=== PATIENT | female | born 1995 | race Caucasian/White ===

== ENCOUNTER 2022-11-08 13:13 | Outpatient (CLI) | payer OTHER, SELFPAY ==
--- NOTE | 2022-11-08 14:00 | CRLHL7_ITS ---
For Patients: As a result of the Century Cures Act, medical imaging exams and procedure reports are released immediately into your electronic medical record. You may view this report before your referring provider. If you have questions, please contact your health care provider. INDICATION: Pelvic and perineal pain. FINDINGS: A transabdominal and transvaginal imaging. Uterus 8 x 4 x 5 cm. Normal urinary bladder. No peritoneal mass. Uniform myometrium. Endometrial thickness is 15 mm. Somewhat ill-defined junctional zone proximally with vascularity. No mass or cyst in the endometrial cavity. Right ovary 5 x 2 x 3 cm with physiologic follicles and normal color and spectral Doppler blood flow. Left ovary 4 x 3 x 3 cm with physiologic peripheral follicles and normal color and spectral Doppler blood flow. Small hypoechoic 8 mm presumed fibroid in the proximal lower uterine segment. IMPRESSION: Somewhat ill-defined anterior junctional zone of somewhat thick endometrium. Query adenomyosis. Dictated by Nathaniel Garcia MD @ 11/08/2022 6:22:27 PM (Electronically Signed)
== END 2022-11-08 13:14 | disposition home or self-care (01) ==
LOC: US 13:13
PROVIDERS: Visit Provider Obstetrics & Gynecology
DX: R10.2 Pelvic and perineal pain (principal)
CPT/HCPCS: 76830; 76856; 93976

== ENCOUNTER 2022-11-09 10:10 | Day surgery (SDC) | payer OTHER, SELFPAY ==
[2022-11-09 10:30] VITALS: BP 131/84; PULSE 56; RESP 14; TEMP 36.8; O2SAT 96
[2022-11-09 10:58] LABS: Hemoglobin* 14.4 gm/dL (12.0-16.0)
[2022-11-09] MEDS: DOXYCYCLINE HYCLATE 200 MG in 0.9 % SODIUM CHLORIDE Mini-bag 100 ML 100 MG IVPB (11:07)
[2022-11-09 11:16] VITALS: BMI 42.4
[2022-11-09] MEDS: SCOPOLAMINE 1 MG/3 DAY PATCH 1 PATCH TRANSDERMA (12:06)
[2022-11-09] MEDS: LACTATED RINGERS 1000 ML 1,000 ML 125 ML IV (14:15)
[2022-11-09 15:00] VITALS: BP 125/80; PULSE 56; RESP 16; TEMP 36.3; O2SAT 96
[2022-11-09] MEDS: KETOROLAC 30 MG/ML inj IVP (15:00)
--- NOTE | 2022-11-09 15:00 | W.ANESCHARGE ---
Anesthesia Charges Start Date/Time Anesthesia Start Date: 11/09/22 Anesthesia Start Time: 14:06 Stop Date/Time Anesthesia Stop Date: 11/09/22 Anesthesia Stop Time: 14:56
[2022-11-09] MEDS: LACTATED RINGERS 1000 ML 1,000 ML 50 ML IV (15:04)
--- NOTE | 2022-11-09 15:04 | W.PM.GYNPROC ---
Procedure Note Time Seen by Provider: 14:00 Date of procedure: 11/09/22 Pre-op diagnosis: Abnormal uterine bleeding, suspected retained products of conception Post-op diagnosis: same Procedure: Hysteroscopy and curettage Anesthesia: MAC Complications: None Surgeon: Jeff Courtney Estimated blood loss (mL): 10 IV fluids (mL): 300 Urine Output (mL): 200 Pathology: specimen obtained, sent to pathology Condition: stable Disposition: same day Findings: Speculum exam: cervix about 1cm dilated with dark bleeding seen from os, no abnormal vaginal discharge. Uterine sound 8cm. Intrauterine cavity: thickened, hypervascular, posterior uterine wall looked like multiple polypoid lesions even like grape like lesions with calcifications, anterior uterine wall thickened with lots of irregular looking tissue, bilateral cornual openings seen. Procedure Description: Patient was taken to the OR were MAC anesthesia was administered without difficulty. She was placed in the dorsal lithotomy position with Louie type stirrups. Patient was then prepared and draped in the normal sterile fashion. A bivalved speculum was inserted in the posterior aspect of the vagina. 0.5% Marcaine was injected at 2 and 11 o'clock a total of about 5mL utilized. A single-tooth tenaculum was used to grasp the anterior lip of the cervix. The uterus was carefully sounded to 8 cm. The cervical os did not need dilation, I was able to pass freely a 6mm Hegar dilator and knew I was able to accommodate the 5 mm TrueClear hysteroscope. A 5 mm 30 degree TrueClear hysteroscope was introduced under direct visualization, and the uterus was distended with normal saline. Findings as above. Soft tissue incisor blade from TrueClear hysteroscope system was introduced under direct visualization, but because the cervix was so dilated I was unable to keep adequate distention and was notified of rapid fluid loss that was unaccounted for, I was not concerned about perforation, but concerned that because the cavity was so hypervascular there could have been quick absorption of the fluid so decided to instead proceed with sharp curetting. This was performed gently as to avoid excess scraping and avoid scarring in the future. I was then able to perform a second look hysteroscopy and the cavity looked much regular, thinner and whitish over all of the beard of the uterus. Tenaculum was removed from the cervix and good hemostasis was noted at puncture sites. Patient tolerated the procedure well. Instrument and sponge counts were correct x2. The patient was awakened from MAC anesthesia and taken to the recovery room in a stable condition. The patient will go home after recovering from anesthesia and meeting all the criteria for discharge. She was given instruction regarding follow-up visit in 2 weeks at [facility] and instructions for pain medication. After procedure ended I was told by OR staff that there were 2 chux pads beneath patient buttocks that were soaked with clear fluid, this would account for at least 500mL of fluid deficit. Fluid deficit: 1350mL
[2022-11-09] MEDS: fentaNYL 100 MCG/2 ML inj 50 MCG IVP (15:05)
[2022-11-09 15:15] VITALS: BP 128/88; PULSE 53; RESP 16; O2SAT 96
[2022-11-09 15:30] VITALS: BP 125/87; PULSE 62; RESP 16; O2SAT 97
[2022-11-09 15:45] VITALS: BP 126/84; PULSE 64; RESP 16; O2SAT 98
== END 2022-11-09 15:48 | disposition home or self-care (01) ==
PROVIDERS: Visit Provider Obstetrics & Gynecology
PROC: 0UDB8ZZ Extraction of Endometrium, Via Natural or Artificial Opening Endoscopic (ICD-10-PCS; CPT 58558; principal; 2022-11-09 11:30)
DX: N93.8 Other specified abnormal uterine and vaginal bleeding (principal); R93.89 Abnormal findings on diagnostic imaging of other specified body structures
CPT/HCPCS: 58558; 00952; 36415; 85018; 86850; 86900; 86901; 88305; A9270; J1100; J1885; J2250; J2405; J2704; J3010; J7120

== ENCOUNTER 2022-12-24 11:58 | Outpatient (CLI) | payer OTHER, SELFPAY ==
[2022-12-28 17:54] LABS: Progesterone, HPLC-MS/MS 2.95 ng/mL
== END 2022-12-24 11:59 | disposition home or self-care (01) ==
LOC: LAB 12:00
PROVIDERS: Visit Provider Obstetrics & Gynecology
DX: Z31.9 Encounter for procreative management, unspecified (principal)
CPT/HCPCS: 36415; 84144

== ENCOUNTER 2023-03-12 11:48 | Outpatient (CLI) | payer OTHER, SELFPAY | END 2023-03-12 11:49 | disposition home or self-care (01) | LOC: NFLDREF 03-16 16:02 | PROVIDERS: Visit Provider Obstetrics & Gynecology | DX: N97.0 Female infertility associated with anovulation (principal) | CPT/HCPCS: 84144; 84702 ==

== ENCOUNTER 2023-03-14 15:50 | Outpatient (CLI) | payer OTHER, SELFPAY | END 2023-03-14 15:51 | disposition home or self-care (01) | LOC: NFLDREF 03-16 20:11 | PROVIDERS: Visit Provider Obstetrics & Gynecology | DX: N97.0 Female infertility associated with anovulation (principal); N91.2 Amenorrhea, unspecified | CPT/HCPCS: 81025; 84144 ==

== ENCOUNTER 2023-03-20 15:45 | Outpatient (CLI) | payer OTHER, SELFPAY ==
--- NOTE | 2023-03-20 16:00 | CRLHL7_ITS ---
For Patients: As a result of the Century Cures Act, medical imaging exams and procedure reports are released immediately into your electronic medical record. You may view this report before your referring provider. If you have questions, please contact your health care provider. INDICATION: Female infertility associated with anovulation. TECHNIQUE: Ultrasound pelvis transabdominal and transvaginal for better assessment or to better visualize the endometrium. Real-time sonographic images with spectral and color Doppler imaging of the ovaries were obtained. COMPARISON: None. FINDINGS: Uterus: 7 x 5 x 4 cm. Normal echotexture of the myometrium. No masses. Endometrium: Transvaginal imaging was performed to better evaluate the endometrium. Endometrial thickness measures 6 mm. No sign of endometrial mass or fluid. Punctate calcification within the endometrium. Right ovary 4 x 3 x 2 cm. Left ovary 4 x 3 x 3 cm. No ovarian or adnexal masses. Multiple follicles present in each ovary. Normal arterial and venous blood flow is demonstrated in both ovaries. Cul-de-sac: No significant free fluid. IMPRESSION: Unremarkable pelvic ultrasound. Dictated by Lj Mcqueen MD @ 03/21/2023 4:27:35 PM (Electronically Signed)
== END 2023-03-20 15:46 | disposition home or self-care (01) ==
LOC: US 15:45
PROVIDERS: Visit Provider Obstetrics & Gynecology
DX: N97.0 Female infertility associated with anovulation (principal)
CPT/HCPCS: 76830; 76856

== ENCOUNTER 2023-04-12 12:02 | Outpatient (CLI) | payer OTHER, SELFPAY | END 2023-04-12 12:03 | disposition home or self-care (01) | PROVIDERS: Visit Provider Obstetrics & Gynecology | DX: N97.0 Female infertility associated with anovulation (principal) | CPT/HCPCS: 84702 ==

== ENCOUNTER 2023-04-17 08:08 | Outpatient (CLI) | payer OTHER, SELFPAY | END 2023-04-17 08:09 | disposition home or self-care (01) | LOC: NFLDREF 04-19 06:11 | PROVIDERS: Visit Provider Obstetrics & Gynecology | DX: Z31.9 Encounter for procreative management, unspecified (principal) | CPT/HCPCS: 84702 ==

== ENCOUNTER 2023-05-15 14:38 | Outpatient (CLI) | payer OTHER, SELFPAY ==
--- NOTE | 2023-05-15 15:00 | CRLHL7_ITS ---
For Patients: As a result of the Century Cures Act, medical imaging exams and procedure reports are released immediately into your electronic medical record. You may view this report before your referring provider. If you have questions, please contact your health care provider. INDICATION: First trimester scan, establish dates. COMPARISON: None. TECHNIQUE: Real-time rebollar-scale imaging of the pelvis was performed. FINDINGS: Sonographic imaging demonstrates a single living intrauterine gestation. The embryo demonstrates a regular cardiac rate measuring 178 beats per minute. The embryo`s crown-rump length measurement of 1.8 cm corresponds to a gestational age of 8 weeks 1 day with a sonographic due date of 12/24/2023. There is a normal-appearing yolk sac. There are no gross abnormalities noted within the embryo at this early state of development. The gestational sac has a normal appearance. There is no evidence of a perigestational hemorrhage. The amount of fluid within the sac appears appropriate for gestational age. The cervix is closed. The myometrium appears normal. The ovaries are of normal size. Corpus luteal cyst left ovary. There are no suspicious fluid collections noted in the cul-de-sac. IMPRESSION: Normal first trimester OB ultrasound exam. Gestational age calculated at 8 weeks 1 day with a sonographic due date of 12/24/2023. Dictated by Nemesio Guerrero MD @ 05/16/2023 8:49:13 AM (Electronically Signed)
== END 2023-05-15 14:39 | disposition home or self-care (01) ==
LOC: US 14:39
PROVIDERS: Visit Provider Physician Assistant
DX: Z34.91 Encounter for supervision of normal pregnancy, unspecified, first trimester (principal); Z3A.08 8 weeks gestation of pregnancy
CPT/HCPCS: 76817; 86703; 86706; 86803; 86850; 86900; 86901; 87086; 87340; 87491; 87591

== ENCOUNTER 2023-05-15 16:02 | Outpatient (CLI) | payer OTHER, SELFPAY ==
[2023-05-15 20:57] LABS: Chlamydia DNA Amplified* NOT DETECTED (No Detected); GC DNA Amplified* NOT DETECTED (No Detected)
== END 2023-05-15 16:03 | disposition home or self-care (01) ==
PROVIDERS: Visit Provider Physician Assistant
DX: Z34.81 Encounter for supervision of other normal pregnancy, first trimester (principal)
CPT/HCPCS: 86592; 86703; 86704; 86706; 86762; 86787; 86803; 86850; 86900; 86901; 87086; 87340; 87491; 87591

== ENCOUNTER 2023-06-13 13:57 | Outpatient (CLI) | payer OTHER, SELFPAY ==
--- NOTE | 2023-06-13 14:00 | US_ITS ---
Final Report Patient: CHELY LEES Facility:?[facility] Patient ID:?[id number] Site Patient ID:?[id number]. Site :?[id number] Study:? OB -06/13/2023 2:46:26 PM Ordering Physician:?TREVOR FERNANDEZ Final Report: INDICATION: Follow-up viability COMPARISON: 06/02/2023 TECHNIQUE: Real-time rebollar-scale imaging of the pelvis was performed. FINDINGS: Sonographic imaging demonstrates a single living intrauterine gestation. The embryo demonstrates a regular cardiac rate measuring 161 beats per minute. The embryo`s crown-rump length measurement of 6.0 cm corresponds to a gestational age of 12 weeks 3 days with a sonographic due date of 12/23/2023. There is a normal-appearing yolk sac. There are no gross abnormalities noted within the embryo at this early state of development. The gestational sac has a normal appearance. There is no evidence of a perigestational hemorrhage. The amount of fluid within the sac appears appropriate for gestational age. The cervix is closed. The myometrium appears normal. Corpus luteal cyst left ovary. Nonvisualization right ovary. There are no suspicious fluid collections noted in the cul-de-sac. IMPRESSION: Single living intrauterine with sonographic gestational age 12 weeks 3 days and sonographic due date of 12/23/2023. Cervix is closed. Dictated by Nemesio Guerrero MD @ 06/14/2023 10:58:35 AM ADDENDUM: Transvaginal measurement of the cervix performed. The cervix measures 3.7 cm in length. Dictated by: Nemesio Guerrero MD @06/20/2023 9:33:33 AM (Electronic Signature)
== END 2023-06-13 13:58 | disposition home or self-care (01) ==
LOC: US 13:58
PROVIDERS: Visit Provider Obstetrics & Gynecology
DX: O09.291 Supervision of pregnancy with other poor reproductive or obstetric history, first trimester (principal); O26.851 Spotting complicating pregnancy, first trimester; Z3A.12 12 weeks gestation of pregnancy
CPT/HCPCS: 76817

== ENCOUNTER 2023-06-27 01:32 | Emergency (ER) | payer OTHER, SELFPAY ==
[2023-06-27 01:37] VITALS: BP 136/89; PULSE 81; RESP 18; TEMP 36.7; O2SAT 99; BMI 40.8
--- NOTE | 2023-06-27 01:40 | ED_ITS ---
HPI - Nausea/Vomiting/Diarrhea General Time Seen by Provider: 01:40 Date Seen: 07/25/23 Chief complaint: Nausea/Vomiting Stated complaint: Vomiting Time Seen by Provider: 06/27/23 01:40 Source: patient, RN notes reviewed and old records reviewed Mode of arrival: ambulatory Limitations: no limitations History of Present Illness HPI Narrative: 27-year-old at 14+ to by LMP March 19 who presents today with nausea vomiting which started about 24 hours ago. No abdominal pain, no diarrhea. Does have a posterior headache and has a history of migraines which she usually treats with ibuprofen and Tylenol. No fever, runny nose, cough. No vaginal bleeding or abdominal pain or cramping. Related Data Home Medications Medication Instructions Recorded Confirmed duloxetine 30 mg capsule,delayed 60 mg PO DAILY 11/08/22 06/27/23 release ascorbate calcium (vitamin C) 500 500 mg PO QDAY 05/15/23 06/27/23 mg tablet cholecalciferol (vitamin D3) 125 125 mcg PO QDAY 05/15/23 06/27/23 mcg (5,000 unit) capsule docosahexaenoic acid 200 mg 200 mg PO DAILY 05/15/23 06/27/23 capsule ( DHA) doxylamine succinate 25 mg tablet 25 mg PO QHS PRN 05/15/23 06/27/23 (Unisom (doxylamine)) pyridoxine (vitamin B6) 25 mg 25 mg PO QDAY 05/15/23 06/27/23 tablet ondansetron 4 mg disintegrating 2 mg PO Q6-8H PRN 06/27/23 06/27/23 tablet Previous Rx's Medication Instructions Recorded duloxetine 30 mg capsule,delayed 30 mg PO QDAY #60 caps 05/15/23 release Allergies Allergy/AdvReac Type Severity Reaction Status Date / Time latex Allergy Intermediate Rash Verified 06/27/23 01:40 [facility] Medical History (Updated 06/27/23 @ 02:36 by Femi Denise MD) premature rupture of membranes ?O42.919 - premature rupture of membranes, unspecified as to length of time between rupture and onset of labor, unspecified trimester (ICD-10) Surgical History History of D&C ?Z98.890 - Other specified postprocedural states (ICD-10) Family History (Updated 05/17/23 @ 11:39 by Elisabeth Reynoso PA-C) Unknown Factor V Leiden mutation Social History (Updated 05/17/23 @ 11:40 by Elisabeth Reynoso PA-C) Narrative: 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 Marital status: . Evangelical/cultural needs: no. Chemical or radiation exposure: no. Pre- tobacco use: no. Pre- alcohol use: no. Current tobacco use: no. Current alcohol use: no. Recreational drug use: no. Dietary restrictions: no. Blood transfusion acceptable in an emergency: yes. PSYCHOSOCIAL HISTORY: History of depression or currently depressed: Yes, see HPI. Current physical, emotional, or sexual mistreatment: no. Problems that will make it hard to make it to appointments: no. What is your current living situation?: I presently have a place to live Problems where you live: no known problems In the past 12 months, utilities in danger of being shut off: no In past 12 months, lack of transportation kept you from medical appts, meetings, work, or getting things needed for daily living: no In the past 12 mos, have been you worried that your food would run out before you had money to buy more?: never true In the past 12 mos, the food you bought just didn't last and you didn't have money to buy more?: never true Smoking Status: Never smoker Second hand tobacco smoke exposure: No How often do you have a drink containing alcohol: never AUDIT-C Alcohol total score: 0 Non-prescribed substance use: denies use How often does anyone, including family, friends and others, physically hurt you : never How often does anyone, including family, friends and others, insult or talk down to you: never How often does anyone, including family, friends and others, threaten you with harm: never How often does anyone, including family, friends and others, scream or curse at you: never Little interest or pleasure in doing things: several days Feeling down, depressed, or hopeless: more than half the days Exam Narrative: Exam Narrative: General: Well-developed and well-nourished, no acute distress Head: Atraumatic and normocephalic Eyes: Pupils are equal reactive, extraocular motions intact, conjunctiva clear ENT: External nose and ears are normal, posterior pharynx without erythema or exudate Neck: No midline cervical tenderness, full spontaneous range of motion the neck, trachea midline, no adenopathy Heart: Regular rate and rhythm no murmurs or thrills Lungs: Clear to auscultation bilaterally without wheezes or crackles Abdomen: Soft, nontender, nondistended with active bowel sounds Musculoskeletal: No tenderness, deformity, or edema Neurologic: Awake, alert, and oriented x3, no gross focal neurologic deficits, cranial nerves intact as tested Psych: Mood and affect are appropriate Skin: No rashes Const: Vital Signs, click to edit/add: Vital Signs - 24 hr 06/27/23 01:37 06/27/23 01:45 06/27/23 02:01 Temperature 98.0 F 98.0 F Pulse Rate [Right Pulse Oximeter] 81 75 Respiratory Rate 18 18 Blood Pressure [Ri ght Upper Arm] 136/89 126/81 Pulse Oximetry 99 98 99 Oxygen Delivery Me thod Room Air Room Air Course Course ED Course: Patient seen examined, prior 0 being no from June 15 reviewed, that time pat ient was 12+ 1 weeks, and had some spotting but generally progressing well. Patient presents today with vomiting since last night, also posterior headache. No abdominal pain and no tenderness to suggest intra-abdominal infection such as acute cholecystitis, pancreatitis, or appendicitis. Patient also has a posterior headache and has a history of similar. Labs are ordered along with fluids, Benadryl, Compazine, and Tylenol. Reevaluation(s) Time of Reevaluation #1: 02:35 Reevaluation #1: Patient feeling better after medications. Labs with reassuring basic metabolic panel, urinalysis with someone was still very contaminated with squamous cells as well, no urinary symptoms so will defer treatment at this time. Stable for discharge. Vital Signs Vital signs: Initial Vital Signs Temperature 98.0 F 06/27/23 01:37 Temperature Source Temporal Artery Scan 06/27/23 01:37 Pulse Rate 81 06/27/23 01:37 Respiratory Rate 18 06/27/23 01:37 Blood Pressure 136/89 06/27/23 01:37 Blood Pressure Mean 104 06/27/23 01:37 Blood Pressure Position Sitting 06/27/23 01:37 Pulse Oximetry 99 06/27/23 01:37 Oxygen Delivery Method Room Air 06/27/23 01:37 Vital Signs Temperature 98.0 F 06/27/23 01:37 Pulse Rate 81 06/27/23 01:37 Respiratory Rate 18 06/27/23 01:37 Blood Pressure 136/89 06/27/23 01:37 Pulse Oximetry 99 06/27/23 01:37 Oxygen Delivery Method Room Air 06/27/23 01:37 Temperature 98.0 F 06/27/23 02:01 Pulse Rate 75 06/27/23 02:01 Respiratory Rate 18 06/27/23 02:01 Blood Pressure 126/81 06/27/23 02:01 Pulse Oximetry 99 06/27/23 02:01 Oxygen Delivery Method Room Air 06/27/23 02:01 Medications Administered Medications: Generic Name Dose Route Start Last Admin Trade Name Freq PRN Reason Stop Dose Admin Diphenhydramine HCl 25 mg 06/27/23 01:48 06/27/23 01:56 Diphenhydramine 50 Mg/Ml Inj IVP 06/27/23 01:49 25 mg ONCE ONE Administration Sodium Chloride 1,000 mls @ 1,000 mls/hr 06/27/23 02:00 06/27/23 01:45 0.9 % Sodium Chloride 1000 Ml IV 06/27/23 02:59 1,000 mls/hr .Q1H ADAM Administration Prochlorperazine 10 mg 06/27/23 01:48 06/27/23 01:58 Prochlorperazine 5 Mg/Ml Vial IV 06/27/23 01:49 10 mg ONCE ONE Administration MDM - Nausea/Vomiting/Diarrhea Lab Data Labs: Lab Results 06/27/23 06/27/23 Range/Units 01:45 01:53 Sodium 137 (135-149) mmol/L Potassium 3.5 L (3.6-5.1) mmol/L Chloride 105 (96-114) mmol/L Carbon Dioxide 22 (20-32) mmol/L Anion Gap 10 (7-15) mEq/L BUN 6 (5-24) mg/dL Creatinine 0.4 L (0.5-1.5) mg/dL Estimated Creat Clear 190.10 Estimated GFR 139 ml/min Glucose 102 (60-115) mg/dL Calcium 9.6 (8.4-10.6) mg/dL Magnesium 1.9 (1.5-2.6) mg/dL Urine Color Yellow (Yellow) Urine Appearance Clear (Clear) Urine pH 6.0 (5.0-8.5) Ur Specific [place] 1.025 (1.000-1.030) Urine Protein 1+ A (Negative) Urine Glucose (UA) Negative (Negative) Urine Ketones 1+ A (Negative) Urine Blood 1+ A (Negative) Urine Nitrite Negative (Negative) Urine Bilirubin Negative (Negative) Urine Urobilinogen 0.2 (0.2-1.0) Ur Leukocyte Esterase Negative (Negative) Urine RBC 10-25 A (0-2) Urine WBC 10-25 A (0-5) Ur Squamous Epith Cells Many A (None-Few) Urine Bacteria Moderate A (None) Discharge Plan Discharge Clinical Impression: Headache, Nausea and vomiting during Patient Disposition: Home w/ Parent or Adult Condition: Improved Instructions: Nausea and Vomiting in (ED) Activity Level: Activity as Tolerated Discharge Diet: Regular Prescriptions: No Action duloxetine 30 mg capsule,delayed release(DR/EC) 60 mg PO DAILY DHA 200 mg capsule 200 mg PO DAILY ascorbate calcium (vitamin C) 500 mg tablet 500 mg PO QDAY Unisom (doxylamine) 25 mg tablet 25 mg PO QHS PRN cholecalciferol (vitamin D3) 125 mcg (5,000 unit) capsule 125 mcg PO QDAY pyridoxine (vitamin B6) 25 mg tablet 25 mg PO QDAY ondansetron 4 mg tablet,disintegrating 2 mg PO Q6-8H PRN duloxetine 30 mg capsule,delayed release(DR/EC) 30 mg PO QDAY Qty: 60 1RF Rx Instructions: 30mg daily x 1 week then increase to 60mg daily Follow Up/Referrals: Provider,Not a Local [Primary Care Provider] - Stand Alone Forms: [employer] Info Instructions
[2023-06-27 01:45] VITALS: O2SAT 98
[2023-06-27] MEDS: 0.9 % SODIUM CHLORIDE 1000 ml 1,000 ML IV (01:45)
[2023-06-27] MEDS: diphenhydrAMINE 50 MG/ML inj 25 MG IVP (01:56)
[2023-06-27] MEDS: PROCHLORPERAZINE 5 MG/ML VIAL 10 MG IV (01:58)
[2023-06-27 02:01] VITALS: BP 126/81; PULSE 75; RESP 18; TEMP 36.7; O2SAT 99
[2023-06-27 02:02] VITALS: BP 126/81; PULSE 71; RESP 18; O2SAT 97
[2023-06-27 02:04] LABS: Appearance Urine Clear (Clear); Bilirubin Urine Negative (Negative); Color Urine Yellow (Yellow); Glucose Urine Negative (Negative); Leukocyte Esterase Urine Negative (Negative); Nitrite Urine Negative (Negative); Urobilinogen Urine 0.2 (0.2-1.0)
[2023-06-27 02:15] LABS: Chloride* 105 mmol/L (96-114); Sodium* 137 mmol/L (135-149)
[2023-06-27 02:16] LABS: Potassium* 3.5 mmol/L (3.6-5.1)
[2023-06-27 02:18] LABS: Creatinine* 0.4 mg/dL (0.5-1.5); Estimated Glomerular Filt Rate 139 ml/min
[2023-06-27 02:19] LABS: Anion Gap 10 mEq/L (7-15); Blood Urea Nitrogen* 6 mg/dL (5-24); Calcium* 9.6 mg/dL (8.4-10.6); Carbon Dioxide* 22 mmol/L (20-32); Glucose* 102 mg/dL (60-115); Magnesium* 1.9 mg/dL (1.5-2.6)
[2023-06-27] MEDS: ACETAMINOPHEN 500 MG TABLET 1000 MG PO (02:20)
[2023-06-27 02:25] LABS: Squamous Epithelial Cell Urine Many (None-Few)
[2023-06-27 02:26] LABS: Bacteria Urine Moderate
[2023-06-27 02:32] VITALS: BP 116/60; PULSE 59; RESP 18; O2SAT 97
[2023-06-27 02:42] VITALS: BP 126/81; PULSE 75; RESP 18; TEMP 36.7
[2023-06-27 12:33] LABS: Blood Urine Negative (Negative); Ketones Urine Negative (Negative); Protein Urine Negative (Negative); Specific Gravity Urine <= 1.005 (1.000-1.030); pH Urine 5.5 (5.0-8.5)
== END 2023-06-27 02:42 | disposition home or self-care (01) ==
PROVIDERS: Emergency Provider Family Medicine
DX: O21.9 Vomiting of pregnancy, unspecified (principal); R51.9 Headache, unspecified; Z3A.14 14 weeks gestation of pregnancy
CPT/HCPCS: 36415; 80048; 81001; 83735; 87086; 94761; 96374; 96375; 99284; A9270; J0780; J1200; J7030

== ENCOUNTER 2023-07-04 20:23 | Emergency (ER) | payer OTHER, SELFPAY ==
[2023-07-04 20:26] VITALS: BP 133/84; PULSE 81; RESP 16; TEMP 36.7; O2SAT 97
--- NOTE | 2023-07-04 21:52 | ED.GENADULT ---
HPI - General Adult General Date Seen: 07/04/23 Chief complaint: Abdominal Pain Stated complaint: cramping (15 wks ) Time Seen by Provider: 07/04/23 21:52 History of Present Illness HPI narrative: 27-year-old female with a history of previous pre term loss (at 17 weeks) following with OB care here at [place] for . She is currently 15 weeks . She has been experiencing abdominal pain all day long the turn into pelvic cramping and low back discomfort this evening. She is not having any vaginal bleeding. No fluid leakage. No discharge. Pain comes and goes in waves. The often start in her low back and then moved forward to the front of her abdomen/uterus. She has been nauseous and vomiting today. No upper abdominal pain. No known injury. 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 She was seen in the ER 1 week ago for evaluation of nausea and vomiting without diarrhea. She also had headache. Most recent Ob no was 06/[address] Gibbons. Note indicates that she has a history of PPROM at 17 weeks 3 days last May. Also severe depression anxiety. Her current was conceived with Clomid. Elevated BMI. She had a tiny subchorionic hemorrhage on her ultrasound 06/02/2023. Related Data Home Medications Medication Instructions Recorded Confirmed duloxetine 30 mg capsule,delayed 60 mg PO DAILY 11/08/22 07/04/23 release ascorbate calcium (vitamin C) 500 500 mg PO QDAY 05/15/23 07/04/23 mg tablet cholecalciferol (vitamin D3) 125 125 mcg PO QDAY 05/15/23 07/04/23 mcg (5,000 unit) capsule docosahexaenoic acid 200 mg 200 mg PO DAILY 05/15/23 07/04/23 capsule ( DHA) doxylamine succinate 25 mg tablet 25 mg PO QHS PRN 05/15/23 07/04/23 (Unisom (doxylamine)) pyridoxine (vitamin B6) 25 mg 25 mg PO QDAY 05/15/23 07/04/23 tablet ondansetron 4 mg disintegrating 2 mg PO Q6-8H PRN 06/27/23 07/04/23 tablet Previous Rx's Medication Instructions Recorded duloxetine 30 mg capsule,delayed 30 mg PO QDAY #60 caps 05/15/23 release Allergies Allergy/AdvReac Type Severity Reaction Status Date / Time latex Allergy Intermediate Rash Verified 06/27/23 01:40 [facility] Medical History (Updated 07/05/23 @ 00:48 by Narendra Méndez MD) premature rupture of membranes ?O42.919 - premature rupture of membranes, unspecified as to length of time between rupture and onset of labor, unspecified trimester (ICD-10) Surgical History History of D&C ?Z98.890 - Other specified postprocedural states (ICD-10) Family History (Updated 05/17/23 @ 11:39 by Elisabeth Reynoso PA-C) Unknown Factor V Leiden mutation Social History (Updated 05/17/23 @ 11:40 by Elisabeth Reynoso PA-C) Narrative: 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 Marital status: . Sikhism/cultural needs: no. Chemical or radiation exposure: no. Pre- tobacco use: no. Pre- alcohol use: no. Current tobacco use: no. Current alcohol use: no. Recreational drug use: no. Dietary restrictions: no. Blood transfusion acceptable in an emergency: yes. PSYCHOSOCIAL HISTORY: History of depression or currently depressed: Yes, see HPI. Current physical, emotional, or sexual mistreatment: no. Problems that will make it hard to make it to appointments: no. What is your current living situation?: I presently have a place to live Problems where you live: no known problems In the past 12 months, utilities in danger of being shut off: no In past 12 months, lack of transportation kept you from medical appts, meetings, work, or getting things needed for daily living: no In the past 12 mos, have been you worried that your food would run out before you had money to buy more?: never true In the past 12 mos, the food you bought just didn't last and you didn't have money to buy more?: never true Smoking Status: Never smoker Do you use any of these nicotine containing products: None Second hand tobacco smoke exposure: No How often do you have a drink containing alcohol: never AUDIT-C Alcohol total score: 0 Non-prescribed substance use: denies use How often does anyone, including family, friends and others, physically hurt you: never How often does anyone, including family, friends and others, insult or talk down to you: never How often does anyone, including family, friends and others, threaten you with harm: never How often does anyone, including family, friends and others, scream or curse at you: never Little interest or pleasure in doing things: several days Feeling down, depressed, or hopeless: more than half the days service: No Exam Narrative: Exam Narrative: Constitutional: Appears well-developed and well-nourished. Alert. Conversant. Non toxic. HENT: Head: Atraumatic. Nose: Nose normal. Mouth/Throat: Oral mucosa is clear and moist. no trismus. Eyes: Conjunctivae normal. EOM normal. Pupils equal, round, and reactive to light. No scleral icterus. Neck: Normal range of motion. Neck supple. No tracheal deviation present. Cardiovascular: Normal rate, regular rhythm. No gallop. No friction rub. No murmur heard. Pulmonary/Chest: Effort normal. No stridor. No respiratory distress. No wheezes. No rales. No rhonchi . No tenderness. Abdominal: Soft. Bowel sounds normal. No distension. She does have some palpable suprapubic fullness consistent with enlarging uterus. Suprapubic tenderness. No rebound. No guarding. No CVA tenderness Musculoskeletal: RUE: Normal range of motion. No tenderness. No deformity LUE: Normal range of motion. No tenderness. No deformity RLE: Normal range of motion. No edema. No tenderness. No deformity LLE: Normal range of motion. No edema. No tenderness. No deformity Neurological: Alert and oriented to person, place, and time. Normal strength. CN II-VII intact. No sensory deficit. GCS eye subscore is 4. GCS verbal subscore is 5. GCS motor subscore is 6. Normal coordination Skin: Skin is warm and dry. No rash noted. No pallor. Normal capillary refill. Psychiatric: Normal mood. Normal affect. Const: Vital Signs, click to edit/add: Vital Signs - 24 hr 07/04/23 20:26 Temperature 98.1 F Pulse Rate [Pulse Oximeter] 81 Respiratory Rate 16 Blood Pressure [Ri ght Upper Arm] 133/84 Pulse Oximetry 97 Oxygen Delivery Me thod Room Air Course Vital Signs Vital signs: Initial Vital Signs Temperature 98.1 F 07/04/23 20:26 Temperature Source Oral 07/04/23 20:26 Pulse Rate 81 07/04/23 20:26 Respiratory Rate 16 07/04/23 20:26 Blood Pressure 133/84 07/04/23 20:26 Blood Pressure Mean 100 07/04/23 20:26 Blood Pressure Position Sitting 07/04/23 20:26 Pulse Oximetry 97 07/04/23 20:26 Oxygen Delivery Method Room Air 07/04/23 20:26 Vital Signs Temperature 98.1 F 07/04/23 20:26 Pulse Rate 81 07/04/23 20:26 Respiratory Rate 16 07/04/23 20:26 Blood Pressure 133/84 07/04/23 20:26 Pulse Oximetry 97 07/04/23 20:26 Oxygen Delivery Method Room Air 07/04/23 20:26 Temperature 98.1 F 07/04/23 20:26 Pulse Rate 81 07/04/23 20:26 Respiratory Rate 16 07/04/23 20:26 Blood Pressure 133/84 07/04/23 20:26 Pulse Oximetry 97 07/04/23 20:26 Oxygen Delivery Method Room Air 07/04/23 20:26 Medications Administered Medications: Discontinued Medications Generic Name Dose Route Start Last Admin Trade Name Dakotaq PRN Reason Stop Dose Admin Ondansetron HCl 4 mg 07/04/23 22:59 07/04/23 23:15 Ondansetron Odt 4 Mg Tab PO 07/04/23 23:00 4 mg ONCE ONE Administration Medical Decision Making [facility] Narrative Medical decision making narrative: Pleasant 27-year-old female presenting to the ER today with suprapubic and low back cramping coming in waves throughout the day today. She has a history of premature rupture of membranes and loss of a fetus at 17 weeks gestation. Urinalysis tonight shows no evidence for UTI or kidney stone. Overall abdominal exam is not peritoneal. No focal right lower quadrant tenderness to suggest appendicitis. Her primary concern was for possible pre term labor. She follows with obstetric here in [place] as well as maternal medicine at [facility] for this . She has been having some problems include including an early subchorionic hemorrhage. She has been following with frequent ultrasounds and had a cervical length done at [place] 2 days ago that was 3.5 cm. She was sent in today because of her pain. Obstetric 6, Dr. Martinez request that we get a pelvic ultrasound and cervical length. Ultrasound was obtained and does show normal heart beat and viable [place] intrauterine . Cervical length is shorter today down from 3.5 cm down to 2.7. Discussed with OB, Dr. Farley. At this point no indication for cerclage with cervical leg length above 2.[address] Farley recommends discharge at this point and follow-up in clinic. Patient was upset and dismayed by this recommendation. She requested that I also contact Maternal- Medicine at [place]. We did so and I discussed with the on-call industrial hire sales assistant for [facility]. They agree that at this point there is no indication to (and no clear benefit for cerclage. They will follow-up with the patient tomorrow morning and re-evaluate. They can recheck ultrasound in the morning to see if the cervix length is continuing to shorten. We offered her parks says that if the patient is very nervous they could come down and stay in a hotel in [facility] so that if any symptoms progress the be closer to the hospital at [place]. Otherwise they could follow up in the outpatient OB Clinic for repeat ultrasound tomorrow morning. Discussed these recommendations with the patient and her . They verbalized understanding. They are eager for discharge. Lab Data Labs: Lab Results 07/04/23 Range/Units 22:45 Urine Color Yellow (Yellow) Urine Appearance Slightly Cloudy A (Clear) Urine pH 7.0 (5.0-8.5) Ur Specific [place] 1.020 (1.000-1.030) Urine Protein 1+ A (Negative) Urine Glucose (UA) Negative (Negative) Urine Ketones Negative (Negative) Urine Blood Trace-intact A (Negative) Urine Nitrite Negative (Negative) Urine Bilirubin Negative (Negative) Urine Urobilinogen 0.2 (0.2-1.0) Ur Leukocyte Esterase Trace A (Negative) Urine RBC 0-2 (0-2) Urine WBC 2-5 (0-5) Ur Squamous Epith Cells Moderate A (None-Few) Amorphous Sediment Few A (None) Urine Bacteria Moderate A (None) Imaging Data US pelvix: Attestation: I have reviewed the pertinent imaging results. Radiologist's impression: IMPRESSION: 1. Single live intrauterine . 2. Slightly shortened cervical length measuring 2.7 cm. No funneling identified. Discharge Plan Discharge Clinical Impression: Uterine cramping Patient Disposition: Home, Self-Care Condition: Stable Instructions: Threatened Miscarriage (ED) Additional Instructions: As we discussed, please follow-up with your maternal medicine doctors at [facility] tomorrow morning. Prescriptions: No Action duloxetine 30 mg capsule,delayed release(DR/EC) 60 mg PO DAILY DHA 200 mg capsule 200 mg PO DAILY ascorbate calcium (vitamin C) 500 mg tablet 500 mg PO QDAY Unisom (doxylamine) 25 mg tablet 25 mg PO QHS PRN cholecalciferol (vitamin D3) 125 mcg (5,000 unit) capsule 125 mcg PO QDAY pyridoxine (vitamin B6) 25 mg tablet 25 mg PO QDAY ondansetron 4 mg tablet,disintegrating 2 mg PO Q6-8H PRN duloxetine 30 mg capsule,delayed release(DR/EC) 30 mg PO QDAY Qty: 60 1RF Rx Instructions: 30mg daily x 1 week then increase to 60mg daily Follow Up/Referrals: Provider,Not a Local [Primary Care Provider] - Stand Alone Forms: [employer] Info Instructions
--- NOTE | 2023-07-04 21:56 | US_ITS ---
Patient: CHELY LEES Facility:?[facility] Patient ID:?[id number] Site Patient ID:?[id number]. Site :?[id number] Study:?US-OB Pelvis OB CERVICAL CHECK-07/04/2023 11:01:01 PM Ordering Physician:?NARENDRA AGUIAR M.D. Final Report: INDICATION: 15 weeks cramping, check /cervical length. TECHNIQUE: Ultrasound OB pelvis transabdominal and transvaginal. Real-time rebollar-scale imaging of the pelvis was performed. COMPARISON: OB ultrasound 06/13/2023. FINDINGS: There is a single intrauterine gestation. The embryo demonstrates a regular cardiac rate measuring 161 beats per minute. Cervical length measures 2.7 cm. No funneling identified. The placenta is anterior and fundal. IMPRESSION: 1. Single live intrauterine . 2. Slightly shortened cervical length measuring 2.7 cm. No funneling identified. Dictated by Narendra Martinez MD @ 07/04/2023 11:13:31 PM Signed by:?Narendra Martinez MD @07/04/2023 11:13:31 PM (Electronic Signature)
[2023-07-04 22:56] LABS: Appearance Urine Slightly Cloudy (Clear); Bilirubin Urine Negative (Negative); Blood Urine Trace-intact (Negative); Color Urine Yellow (Yellow); Glucose Urine Negative (Negative); Ketones Urine Negative (Negative); Leukocyte Esterase Urine Trace (Negative); Nitrite Urine Negative (Negative); Protein Urine 1+ (Negative); Urobilinogen Urine 0.2 (0.2-1.0)
[2023-07-04 23:01] LABS: Bacteria Urine Moderate; RBC Urine 0-2 (0-2); Squamous Epithelial Cell Urine Moderate (None-Few)
[2023-07-04 23:02] LABS: Amorphous Sediment Urine Few
[2023-07-04] MEDS: ONDANSETRON ODT 4 MG TAB PO (23:15)
== END 2023-07-05 01:00 | disposition home or self-care (01) ==
LOC: ED 07-05 00:55
PROVIDERS: Emergency Provider Emergency Medicine
DX: O26.892 Other specified pregnancy related conditions, second trimester (principal); N94.89 Other specified conditions associated with female genital organs and menstrual cycle; Z3A.15 15 weeks gestation of pregnancy
CPT/HCPCS: 76815; 76817; 81001; 87086; 99284; A9270

== ENCOUNTER 2023-07-07 21:45 | Emergency (ER) | payer OTHER, SELFPAY ==
--- NOTE | 2023-07-07 21:46 | US_ITS ---
Patient: CHELY LEES Facility:?[facility] Patient ID:?[id number] Site Patient ID:?[id number] Site :?1995 Study:?US-OB Pelvis -07/07/2023 10:51:06 PM Ordering Physician:TERRELL NUNO Final Report: Indication: Cervical assessment, status post cerclage Technique: Transabdominal and transvaginal assessment of the fetus in maternal anatomy, overall limited with primary attention to the cervix Comparison: Ob ultrasound performed 07/04/2023 Findings: Single live intrauterine gestation. Fetus is in vertex position. heart rate 161 beats per minute. Placenta along the right wall. Amniotic fluid unremarkable with single greatest pocket 3.7 centimeters. Cervix and cerclage wire visualized appearing 3 centimeters of the external os and narrowing to 1.6 centimeters to the cerclage. Impression: Single live intrauterine gestation with parameters as above. The cervix measures 3 centimeters at the external os narrows to 1.6 centimeters from the os to the cerclage. Dictated by Scottie Pimentel MD @ 07/07/2023 11:19:41 PM Signed by:?Scottie Pimentel MD @07/07/2023 11:19:41 PM (Electronic Signature)
[2023-07-07 21:59] VITALS: BP 154/79; PULSE 84; RESP 18; TEMP 36.7; O2SAT 99; BMI 39.9
--- NOTE | 2023-07-07 22:47 | ED_ITS ---
HPI - General Adult General Chief complaint: OB/Uterine Contractions Stated complaint: 15wks , cramping Time Seen by Provider: 07/07/23 21:46 Source: patient Mode of arrival: ambulatory Limitations: no limitations History of Present Illness HPI narrative: 27-year-old female about 15 weeks , coming in today for cramping. Patient had a cerclage done yesterday at [facility]. She had some spotting and cramping yesterday. Woke up this morning felt fine however around 4 in the afternoon the cramping started again. She does state that she sat on the toilet and passed a lot of gas in that the cramping did get better. However she was concerned enough that she called the OB line and was recommended she come in today for an ultrasound of the cervix given her recent cerclage. She denies any new or concerning vaginal discharge. No fluid leaking. Related Data Home Medications Medication Instructions Recorded Confirmed duloxetine 30 mg capsule,delayed 60 mg PO DAILY 11/08/22 07/07/23 release ascorbate calcium (vitamin C) 500 500 mg PO QDAY 05/15/23 07/07/23 mg tablet cholecalciferol (vitamin D3) 125 125 mcg PO QDAY 05/15/23 07/07/23 mcg (5,000 unit) capsule docosahexaenoic acid 200 mg 200 mg PO DAILY 05/15/23 07/07/23 capsule ( DHA) doxylamine succinate 25 mg tablet 25 mg PO QHS PRN 05/15/23 07/07/23 (Unisom (doxylamine)) pyridoxine (vitamin B6) 25 mg 25 mg PO QDAY 05/15/23 07/07/23 tablet ondansetron 4 mg disintegrating 2 mg PO Q6-8H PRN 06/27/23 07/07/23 tablet progesterone micronized 200 mg 200 mg PO QPM 07/07/23 07/07/23 capsule Previous Rx's Medication Instructions Recorded duloxetine 30 mg capsule,delayed 30 mg PO QDAY #60 caps 05/15/23 release Allergies Allergy/AdvReac Type Severity Reaction Status Date / Time latex Allergy Intermediate Rash Verified 07/07/23 22:02 Review of Systems Status of ROS: Reports: 10 or more systems reviewed and unremarkable except as noted in History and below 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 Marital status: . Yarsani/cultural needs: no. Chemical or radiation exposure: no. Pre- tobacco use: no. Pre- alcohol use: no. Current tobacco use: no. Current alcohol use: no. Recreational drug use: no. Dietary restrictions: no. Blood transfusion acceptable in an emergency: yes. PSYCHOSOCIAL HISTORY: History of depression or currently depressed: Yes, see HPI. Current physical, emotional, or sexual mistreatment: no. Problems that will make it hard to make it to appointments: no. What is your current living situation?: I presently have a place to live Problems where you live: no known problems In the past 12 months, utilities in danger of being shut off: no In past 12 months, lack of transportation kept you from medical appts, meetings, work, or getting things needed for daily living: no In the past 12 mos, have been you worried that your food would run out before you had money to buy more?: never true In the past 12 mos, the food you bought just didn't last and you didn't have money to buy more?: never true Smoking Status: Never smoker Do you use any of these nicotine containing products: None Second hand tobacco smoke exposure: No How often do you have a drink containing alcohol: never AUDIT-C Alcohol total score: 0 Non-prescribed substance use: denies use How often does anyone, including family, friends and others, physically hurt you : never How often does anyone, including family, friends and others, insult or talk down to you: never How often does anyone, including family, friends and others, threaten you with harm: never How often does anyone, including family, friends and others, scream or curse at you: never Little interest or pleasure in doing things: several days Feeling down, depressed, or hopeless: more than half the days service: No Exam Narrative: Exam Narrative: Well-nourished well-developed patient in no acute distress. Alert and oriented. Answers questions appropriately. Mood and affect are appropriate. Thoughts are goal oriented and rational. No tangential or magical thinking noted. Patient speaks in full sentences without needing to catch her breath. HEENT: Normocephalic atraumatic. Pupils are equally round reactive to light. Extraocular muscles are intact. Conjunctivae are moist without any icterus noted. Moist mucous membranes. Cardiovascular: Heart is regular rate and rhythm S1 and S2 are present without any murmurs. Lungs: Clear to auscultation bilaterally no wheezes rhonchi or rales are appreciated. Patient takes deep breaths without any discomfort. Abdomen: Soft and nontender nondistended with normal bowel sounds. Extremities: Bilateral lower extremities are without edema. Skin: Well perfused without any obvious rashes. Const: Vital Signs, click to edit/add: Vital Signs - 24 hr 07/07/23 21:59 07/07/23 22:55 Temperature 98.1 F Pulse Rate [Right Pulse Oximeter] 84 68 Respiratory Rate 18 18 Blood Pressure [Ri ght Upper Arm] 154/79 H 132/85 Pulse Oximetry 99 97 Oxygen Delivery Me thod Room Air Room Air Course Course ED Course: Ultrasound was done and was unremarkable. Cervix was not dilating. Upon presentation patient was quite nervous blood pressure was elevated at 154/79. However blood pressure did come down to 132/85. At this time patient will be discharged home. She follow-up with OBGYN as scheduled. Vital Signs Vital signs: Initial Vital Signs Temperature 98.1 F 07/07/23 21:59 Temperature Source Temporal Artery Scan 07/07/23 21:59 Pulse Rate 84 07/07/23 21:59 Respiratory Rate 18 07/07/23 21:59 Blood Pressure 154/79 H 07/07/23 21:59 Blood Pressure Mean 104 07/07/23 21:59 Blood Pressure Position Sitting 07/07/23 21:59 Pulse Oximetry 99 07/07/23 21:59 Oxygen Delivery Method Room Air 07/07/23 21:59 Vital Signs Temperature 98.1 F 07/07/23 21:59 Pulse Rate 84 07/07/23 21:59 Respiratory Rate 18 07/07/23 21:59 Blood Pressure 154/79 H 07/07/23 21:59 Pulse Oximetry 99 07/07/23 21:59 Oxygen Delivery Method Room Air 07/07/23 21:59 Temperature 98.1 F 07/07/23 21:59 Pulse Rate 68 07/07/23 22:55 Respiratory Rate 18 07/07/23 22:55 Blood Pressure 132/85 07/07/23 22:55 Pulse Oximetry 97 07/07/23 22:55 Oxygen Delivery Method Room Air 07/07/23 22:55 Medical Decision Making MDM Narrative Medical decision making narrative: 27-year-old female with cramping status post cervical cerclage. Ultrasound reassuring. Patient will be discharged with follow-up with OBGYN. Imaging Data US - abdomen: Attestation: I have reviewed the pertinent imaging results. Radiologist's impression: Indication: Cervical assessment, status post cerclage Technique: Transabdominal and transvaginal assessment of the fetus in maternal anatomy, overall limited with primary attention to the cervix Comparison: Ob ultrasound performed 07/04/2023 Findings: Single live intrauterine gestation. Fetus is in vertex position. heart rate 161 beats per minute. Placenta along the right wall. Amniotic fluid unrema rkable with single greatest pocket 3.7 centimeters. Cervix and cerclage wire visualized appearing 3 centimeters of the external os and narrowing to 1.6 centimeters to the cerclage. Impression: Single live intrauterine gestation with parameters as above. The cervix measures 3 centimeters at the external os narrows to 1.6 centimeters from the os to the cerclage. Discharge Plan Discharge Clinical Impression: History of premature rupture of membranes (PROM) in previous , currently , Uterine cramping Patient Disposition: Home, Self-Care Condition: Stable Additional Instructions: Upon arrival today blood pressure was slightly elevated, however did come down and is now within an acceptable range. I would recommend that you follow-up with your OBGYN to discuss this and to see if anything needs to be done. Prescriptions: No Action duloxetine 30 mg capsule,delayed release(DR/EC) 60 mg PO DAILY DHA 200 mg capsule 200 mg PO DAILY ascorbate calcium (vitamin C) 500 mg tablet 500 mg PO QDAY Unisom (doxylamine) 25 mg tablet 25 mg PO QHS PRN cholecalciferol (vitamin D3) 125 mcg (5,000 unit) capsule 125 mcg PO QDAY pyridoxine (vitamin B6) 25 mg tablet 25 mg PO QDAY progesterone micronized 200 mg capsule 200 mg PO QPM ondansetron 4 mg tablet,disintegrating 2 mg PO Q6-8H PRN duloxetine 30 mg capsule,delayed release(DR/EC) 30 mg PO QDAY Qty: 60 1RF Rx Instructions: 30mg daily x 1 week then increase to 60mg daily Follow Up/Referrals: Provider,Not a Local [Primary Care Provider] - Stand Alone Forms: [facility] Info Instructions
[2023-07-07 22:55] VITALS: BP 132/85; PULSE 68; RESP 18; O2SAT 97
== END 2023-07-07 23:05 | disposition home or self-care (01) ==
PROVIDERS: Emergency Provider Family Medicine
DX: O26.892 Other specified pregnancy related conditions, second trimester (principal); N94.89 Other specified conditions associated with female genital organs and menstrual cycle; Z87.59 Personal history of other complications of pregnancy, childbirth and the puerperium; Z3A.15 15 weeks gestation of pregnancy
CPT/HCPCS: 76815; 76817; 99284

== ENCOUNTER 2023-07-10 15:21 | Outpatient (CLI) | payer OTHER, SELFPAY | END 2023-07-10 15:22 | disposition home or self-care (01) | PROVIDERS: Visit Provider Obstetrics & Gynecology | DX: Z34.92 Encounter for supervision of normal pregnancy, unspecified, second trimester (principal); Z3A.16 16 weeks gestation of pregnancy | CPT/HCPCS: 82565; 82570; 84156; 84450; 84460; 84520 ==

== ENCOUNTER 2023-07-18 21:20 | Emergency (ER) | payer OTHER, SELFPAY ==
--- NOTE | 2023-07-18 21:27 | ED_ITS ---
HPI - General Adult General Chief complaint: OB/Uterine Contractions Stated complaint: 17 weeks , cramping Time Seen by Provider: 07/18/23 21:22 History of Present Illness HPI narrative: CC: Lower Abdominal/Back Cramping pt. had cerclage done in [place] a few weeks back. comes in with cramping symptoms similar to last visit. pt. concerned about her cervix. denies n/v, diarrhea, fevers. 27-year-old woman presenting to the emergency department with concern of ab dominal cramping in the setting of 17 week . Does have a history of loss 2nd trimester 19 weeks with PPROM. This is her 2nd . Due to cervical shortening had a cerclage placed a believe nearly 2 weeks ago. Is no longer scheduled for regular surveillance but she notes that was told to have a low threshold for cramping. She is having cramping in the low abdomen/pelvis and tension or back. Denies dysuria or hematuria. She notes that was observed to have calcium oxalate in her urine prior. Does not have a known history of kidney stones. This cramping is not exactly regular as it had been prior. No spotting/bleeding. She did vomit once this morning. She admits that maybe she is over calling this but also acknowledges that she was told to have a low threshold in the cramping has been persistent. She has managed to get in at least 60 oz of fluid today. At last ER had an elevated blood pressure which improved prior to departure. She does arrive here with blood pressure of 154/100. Selected notes from 07/10/2019 for office visit -- Mersilene tape with knot at 12 o clock, also started vaginal progesterone therapy. Dino recommended short term disability until at least 24 weeks for the moment. -History of second-trimester loss,PPROM at 17 weeks and 3 days delivered on 06/17/2022. -Preconception perinatology consult with Dr. Hill 09/12: Recommended cervical length surveillance starting at 12 weeks. -Referral to [facility]: Completed on 06/18/2023: Recommendations: Low-dose aspirin for preeclampsia risk reduction, cervical length surveillance every 1-2 weeks depending upon findings starting at 15 weeks until 23 5/7 weeks. Cervical lengths scheduled with Dino every 2 weeks. After cerclage placement no need for further lengths. Related Data Home Medications Medication Instructions Recorded Confirmed duloxetine 30 mg capsule,delayed 60 mg PO DAILY 11/08/22 07/20/23 release ascorbate calcium (vitamin C) 500 500 mg PO QDAY 05/15/23 07/20/23 mg tablet cholecalciferol (vitamin D3) 125 125 mcg PO QDAY 05/15/23 07/20/23 mcg (5,000 unit) capsule docosahexaenoic acid 200 mg 200 mg PO DAILY 05/15/23 07/20/23 capsule ( DHA) doxylamine succinate 25 mg tablet 25 mg PO QHS PRN 05/15/23 07/20/23 (Unisom (doxylamine)) pyridoxine (vitamin B6) 25 mg 25 mg PO QDAY 05/15/23 07/20/23 tablet ondansetron 4 mg disintegrating 2 mg PO Q6-8H PRN 06/27/23 07/20/23 tablet progesterone micronized 200 mg 200 mg PO QPM 07/07/23 07/20/23 capsule aspirin 81 mg capsule 81 mg PO DAILY 07/18/23 07/20/23 Previous Rx's Medication Instructions Recorded docusate sodium 100 mg capsule 100 mg PO BID #20 caps 07/10/23 (Colace) metoclopramide HCl 5 mg tablet 5 - 10 mg (1 - 2 x 5 mg) PO BID 07/10/23 (Reglan) PRN nausea and vomiting #20 tabs Allergies Allergy/AdvReac Type Severity Reaction Status Date / Time latex Allergy Intermediate Rash Verified 07/25/23 14:31 Review of Systems Status of ROS: Reports: 6 or more systems reviewed and unremarkable except as noted in History and below [facility] Medical History premature rupture of membranes ?O42.919 - premature rupture of membranes, unspecified as to length of time between rupture and onset of labor, unspecified trimester (ICD-10) Surgical History History of D&C ?Z98.890 - Other specified postprocedural states (ICD-10) Family History Unknown Factor V Leiden mutation Social History Narrative: 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 Marital status: . Christianity/cultural needs: no. Chemical or radiation exposure: no. Pre- tobacco use: no. Pre- alcohol use: no. Current tobacco use: no. Current alcohol use: no. Recreational drug use: no. Dietary restrictions: no. Blood transfusion acceptable in an emergency: yes. PSYCHOSOCIAL HISTORY: History of depression or currently depressed: Yes, see HPI. Current physical, emotional, or sexual mistreatment: no. Problems that will make it hard to make it to appointments: no. What is your current living situation?: I presently have a place to live Problems where you live: no known problems In the past 12 months, utilities in danger of being shut off: no In past 12 months, lack of transportation kept you from medical appts, meetings, work, or getting things needed for daily living: no In the past 12 mos, have been you worried that your food would run out before you had money to buy more?: never true In the past 12 mos, the food you bought just didn't last and you didn't have money to buy more?: never true Smoking Status: Never smoker Do you use any of these nicotine containing products: None Second hand tobacco smoke exposure: No How often do you have a drink containing alcohol: never AUDIT-C Alcohol total score: 0 Non-prescribed substance use: denies use How often does anyone, including family, friends and others, physically hurt you : never How often does anyone, including family, friends and others, insult or talk down to you: never How often does anyone, including family, friends and others, threaten you with harm: never How often does anyone, including family, friends and others, scream or curse at you: never Little interest or pleasure in doing things: more than half the days Feeling down, depressed, or hopeless: more than half the days service: No Exam Narrative: Exam Narrative: Pleasant. Accompanied by mother in law. Skin is warm and dry. Extremities are without edema. She is breathing easily. Laughs easily but does seem mildly anxious. Heart in regular rate rhythm with trace systolic murmur. Abdomen is overweight soft and a little sore in the central suprapubic area. Const: Vital Signs, click to edit/add: Vital Signs - 24 hr 07/18/23 21:30 07/18/23 21:53 Temperature 98.0 F 98.0 F Pulse Rate [Right Pulse Oximeter] 87 74 Respiratory Rate 20 20 Blood Pressure [Ri ght Upper Arm] 154/100 H 128/79 Pulse Oximetry 99 99 Oxygen Delivery Me thod Room Air Room Air Documenting provider has reviewed patient's vital signs: yes Course Course ED Course: will need to assess cervical length if nothing else as admittedly would be therapeutic. does not appear to be having any regular contractions. concerning initial blood pressure. will give iv fluids. urinalysis looks wnl. discussed US results with US technologist. Study:?US-OB Pelvis cx length-07/18/2023 11:10:06 PM Ordering Physician:?ED Final Report: Indication: Seventeen weeks 2 days, cramping, cerclage placed 07/06/23 Technique: Targeted sonographic evaluation of the cervix. Comparison: OB ultrasound 07/07/2023 Findings/Impression : The cervix is closed with a length of 2.6 cm. A cerclage wire is visualized. External os to cerclage distance 1.3 cm. I compared findings with prior US. appears similar. discussed findings and case with ob oncall. no further recommendations at this time other than close follow up. discomfort/cramping resolved over time in the ER. blood pressure also to normal on recheck. see patient discharge plan for further discussion Vital Signs Vital signs: Initial Vital Signs Temperature 98.0 F 07/18/23 21:30 Temperature Source Temporal Artery Scan 07/18/23 21:30 Pulse Rate 87 07/18/23 21:30 Respiratory Rate 20 07/18/23 21:30 Blood Pressure 154/100 H 07/18/23 21:30 Blood Pressure Mean 118 H 07/18/23 21:30 Blood Pressure Position Sitting 07/18/23 21:30 Pulse Oximetry 99 07/18/23 21:30 Oxygen Delivery Method Room Air 07/18/23 21:30 Vital Signs Temperature 98.0 F 07/18/23 21:30 Pulse Rate 87 07/18/23 21:30 Respiratory Rate 20 07/18/23 21:30 Blood Pressure 154/100 H 07/18/23 21:30 Pulse Oximetry 99 07/18/23 21:30 Oxygen Delivery Method Room Air 07/18/23 21:30 Temperature 98.1 F 07/19/23 00:50 Pulse Rate 78 07/19/23 00:50 Respiratory Rate 20 07/19/23 00:50 Blood Pressure 125/74 07/19/23 00:50 Pulse Oximetry 99 07/19/23 00:50 Oxygen Delivery Method Room Air 07/19/23 00:50 Medications Administered Medications: Discontinued Medications Generic Name Dose Route Start Last Admin Trade Name Freq PRN Reason Stop Dose Admin Sodium Chloride 1,000 mls @ 1,000 mls/hr 07/18/23 21:40 07/18/23 22:47 0.9 % Sodium Chloride 1000 Ml IV 07/18/23 22:39 Infused .Q1H ONE Infusion Medical Decision Making MDM Narrative Medical decision making narrative: Rechecked blood pressure improved to 128/79. Would collect urinalysis and monitor here. Would not appear to be with preeclampsia then given improved blood pressure. Requested pelvic ultrasound to better evaluate cervical length only light of cramping that she is reporting. I did defer pelvic exam. I think IV fluids would be helpful; she concurs. Medical Records Medical records reviewed: Yes I reviewed the patient's medical records Lab Data Labs: Lab Results 07/18/23 Range/Units 21:41 Urine Color Yellow (Yellow) Urine Appearance Cloudy A (Clear) Urine pH 7.0 (5.0-8.5) Ur Specific [place] 1.020 (1.000-1.030) Urine Protein Negative (Negative) Urine Glucose (UA) Negative (Negative) Urine Ketones Negative (Negative) Urine Blood Trace-lysed A (Negative) Urine Nitrite Negative (Negative) Urine Bilirubin Negative (Negative) Urine Urobilinogen 0.2 (0.2-1.0) Ur Leukocyte Esterase Negative (Negative) Urine RBC 0-2 (0-2) Urine WBC 0-2 (0-5) Ur Squamous Epith Cells None (None-Few) Urine Bacteria Few A (None) Discharge Plan Discharge Clinical Impression: Pelvic cramping Patient Disposition: Home w/ Parent or Adult Condition: Improved Additional Instructions: Continue to stay well-hydrated. Return for persistent and increased discomfort/cramping, of course any potentially associated spotting or bleeding, fever. Anticipate [facility] reaching out to you to schedule a visit a little bit sooner. Prescriptions: No Action duloxetine 30 mg capsule,delayed release(DR/EC) 60 mg PO DAILY DHA 200 mg capsule 200 mg PO DAILY ascorbate calcium (vitamin C) 500 mg tablet 500 mg PO QDAY Unisom (doxylamine) 25 mg tablet 25 mg PO QHS PRN cholecalciferol (vitamin D3) 125 mcg (5,000 unit) capsule 125 mcg PO QDAY pyridoxine (vitamin B6) 25 mg tablet 25 mg PO QDAY metoclopramide HCl [Reglan] 5 mg tablet 5 - 10 mg PO BID PRN (Reason: nausea and vomiting) Qty: 20 0RF docusate sodium [Colace] 100 mg capsule 100 mg PO BID Qty: 20 0RF progesterone micronized 200 mg capsule 200 mg PO QPM ondansetron 4 mg tablet,disintegrating 2 mg PO Q6-8H PRN aspirin 81 mg capsule 81 mg PO DAILY Follow Up/Referrals: Provider,Not a Local [Primary Care Provider] - Stand Alone Forms: [facility] Info Instructions
[2023-07-18 21:30] VITALS: BP 154/100; PULSE 87; RESP 20; TEMP 36.7; O2SAT 99; BMI 39.6
--- NOTE | 2023-07-18 21:40 | US_ITS ---
Patient: CHELY LEES Facility:?[facility] Patient ID:?[id number] Site Patient ID:?[id number]. Site :?1995 Study:?US-OB Pelvis cx length-07/18/2023 11:10:06 PM Ordering Physician:?ED Final Report: Indication: Seventeen weeks 2 days, cramping, cerclage placed 07/06/23 Technique: Targeted sonographic evaluation of the cervix. Comparison: OB ultrasound 07/07/2023 Findings/Impression : The cervix is closed with a length of 2.6 cm. A cerclage wire is visualized. External os to cerclage distance 1.3 cm. Dictated by Narendra Martinez MD @ 07/18/2023 11:52:12 PM Signed by:?Narendra Martinez MD @07/18/2023 11:52:12 PM (Electronic Signature)
[2023-07-18] MEDS: 0.9 % SODIUM CHLORIDE 1000 ml 1,000 ML IV (21:45)
[2023-07-18 21:53] VITALS: BP 128/79; PULSE 74; RESP 20; TEMP 36.7; O2SAT 99
[2023-07-18 21:56] LABS: Appearance Urine Cloudy (Clear); Bilirubin Urine Negative (Negative); Blood Urine Trace-lysed (Negative); Color Urine Yellow (Yellow); Glucose Urine Negative (Negative); Ketones Urine Negative (Negative); Leukocyte Esterase Urine Negative (Negative); Nitrite Urine Negative (Negative); Protein Urine Negative (Negative); Urobilinogen Urine 0.2 (0.2-1.0)
[2023-07-18 22:04] LABS: RBC Urine 0-2 (0-2); WBC Urine 0-2 (0-5)
[2023-07-18 22:05] LABS: Bacteria Urine Few
[2023-07-19 00:50] VITALS: BP 125/74; PULSE 78; RESP 20; TEMP 36.7; O2SAT 99
== END 2023-07-19 00:51 | disposition home or self-care (01) ==
PROVIDERS: Emergency Provider Family Medicine
DX: R10.2 Pelvic and perineal pain (principal); Z3A.17 17 weeks gestation of pregnancy
CPT/HCPCS: 76817; 81001; 87086; 99283; 99284; J7030

== ENCOUNTER 2023-08-08 15:10 | Outpatient (CLI) | payer OTHER, SELFPAY | END 2023-08-08 15:11 | disposition home or self-care (01) | PROVIDERS: Visit Provider Obstetrics & Gynecology | DX: O10.913 Unspecified pre-existing hypertension complicating pregnancy, third trimester (principal) | CPT/HCPCS: 82565; 82570; 84156; 84450; 84460; 84520 ==

== ENCOUNTER 2023-08-15 08:30 | Outpatient (CLI) | payer OTHER, SELFPAY | END 2023-08-15 08:31 | disposition home or self-care (01) | LOC: NFLDREF 08-16 08:20 | PROVIDERS: PCP Obstetrics & Gynecology; Visit Provider Obstetrics & Gynecology | DX: O10.919 Unspecified pre-existing hypertension complicating pregnancy, unspecified trimester (principal) | CPT/HCPCS: 82570; 82951; 82952; 84156 ==

== ENCOUNTER 2023-08-17 17:12 | Outpatient (CLI) | payer OTHER, SELFPAY ==
[2023-08-17 16:54] VITALS: BP 121/76; PULSE 77; RESP 18; TEMP 36.4; O2SAT 100; BMI 41.1
[2023-08-17 17:48] VITALS: BP 133/76; PULSE 71; TEMP 36.8
--- NOTE | 2023-08-17 17:51 | US_ITS ---
Patient: CHELY LEES Facility:?[facility] Patient ID:?[id number] Site Patient ID:?[id number] Site :?1995 Study:?US-OB Pelvis LIMITED-08/17/2023 6:48:15 PM Ordering Physician:?SARAH ORR Final Report: INDICATION: Cramping, cervical length TECHNIQUE: Ultrasound OB pelvis, limited transabdominal. COMPARISON: OB ultrasound 07/18/2023. FINDINGS: Sonographic imaging demonstrates a single living intrauterine gestation. Fetus demonstrates a regular cardiac rate of 154 beats per minute. Fetus has a breech orientation. Posterior placenta. Amniotic fluid volume appears normal with an SDP of 6.7 cm. Normal cervical length measuring 3.7 cm. A cerclage wire is in place with the wire 1.6 cm from the external cervical os. IMPRESSION: 1. Single viable intrauterine . 2. Normal cervical length measuring 3.7 cm with a cerclage wire in place 1.6 cm from the external cervical os. Dictated by Narendra Martinez MD @ 08/17/2023 7:29:57 PM Signed by:?Narendra Martinez MD @08/17/2023 7:29:57 PM (Electronic Signature)
--- NOTE | 2023-08-17 18:11 | PM.OBLDTN ---
OB - Triage/Final Diagnosis Visit Information Time Seen by Provider: 18:11 Date Seen: 08/17/23 Date of evaluation: 08/17/23 Narrative: The patient is a 27 year old 2 para 0010 at 21 weeks 4 days gestation by LMP with a due date of 12/24/2023, who presents with cramping. Hailee has an obstetrical history not significant for P prom with miscarriage at 7 weeks 3 days with her 1st . This was complicated by a cerclage was placed at the [facility] on 07/20/2023 after cervical length was noted to be shortened at a 16 week ultrasound. Since that time she has been seen either in the emergency department or in the Center for anxiety with cramping for concern for labor. She denies having vaginal bleeding, abnormal vaginal discharge and leaking fluid vaginally. I reassured her that the cramping/tightening that she is feeling is unlikely to be labor as women who have labor with cerclage in place have significant pain with contractions. Vaginal ultrasound for cervical length was requested. On exam her cervix visually appears closed. The cerclage does not appear to be tight. Digital exam not performed. Evaluation Vital signs: Vital Signs - 24 hr 08/17/23 16:54 08/17/23 17:48 Temperature 97.5 F L 98.3 F Pulse Rate 71 Pulse Rate [Pulse Oximeter] 77 Respiratory Rate 18 Blood Pressure 133/76 Blood Pressure [Right Upper Arm] 121/76 Pulse Oximetry 100 Oxygen Delivery Method Room Air Final Diagnosis (1) Cramping affecting , antepartum: Status: Acute Total Time Spent Total Time Spent: 45 minutes
--- NOTE | 2023-08-17 18:54 | PC.OBNST ---
NST Note NST Note Start: 08/17/23 17:24 Freq: ONCE Status: Active Protocol: Document 08/17/23 18:40 HCR (Rec: 08/17/23 18:52 HCR [id number]) NST Note 2 Para (# of births) 0 EDC 12/24/23 Gestational Age In Weeks & Days 21 Weeks & 4 Days High Risk Factors High Blood Pressure - Preexisting,History of Labor/Delivery,History of /Stillborn Patient Presented with Complaint(s) of Contractions/cramping Other Complaints See OBIX notes for doppler FHR 's. Reactive No Appropriate for Gestational Age Yes DANE Morton, RN Date 08/17/23 Reactive No Appropriate for Gestational Age Yes DANE Gore RNC Date 08/17/23 OB NST charge No Complete NST Note via Write Note Yes The provider's electronic signature indicates the NST is reactive/appropriate for gestational age. *Note to provider: If an addendum is required, open the patient's chart and click on the note under the Nurse/Allied Health tab.
== END 2023-08-17 18:44 | disposition home or self-care (01) ==
LOC: OB OUT 17:16 → OB 17:17
PROVIDERS: Visit Provider Obstetrics & Gynecology
DX: O34.30 Maternal care for cervical incompetence, unspecified trimester (principal); O26.899 Other specified pregnancy related conditions, unspecified trimester; R10.9 Unspecified abdominal pain
CPT/HCPCS: 59025; 76815; 76817; G0463

== ENCOUNTER 2023-10-01 08:02 | Outpatient (CLI) | payer OTHER, SELFPAY | END 2023-10-01 08:03 | disposition home or self-care (01) | LOC: NFLDREF 10-03 14:03 | PROVIDERS: Visit Provider Obstetrics & Gynecology | DX: Z34.82 Encounter for supervision of other normal pregnancy, second trimester (principal) | CPT/HCPCS: 82951; 82952 ==

== ENCOUNTER 2023-10-03 17:40 | Outpatient (CLI) | payer OTHER, SELFPAY ==
[2023-10-03 17:56] VITALS: PULSE 78; O2SAT 96
[2023-10-03 17:58] VITALS: BP 128/75; PULSE 74; RESP 16; TEMP 37.1
--- NOTE | 2023-10-03 19:49 | PC.OBNST ---
NST Note NST Note Start: 10/03/23 17:45 Freq: ONCE Status: Active Protocol: Document 10/03/23 19:15 JOHN (Rec: 10/03/23 19:49 JOHN [id number]) NST Note 2 Para (# of births) 0 EDC 12/24/23 Gestational Age In Weeks & Days 28 Weeks & 2 Days High Risk Factors High Blood Pressure - Preexisting,History of /Stillborn Patient Presented with Complaint(s) of Other Other Complaints Pt. main complaint is reported top of abdomen pain/ tightening 6-10/30 that lasted an hour. Worse when upright, improves with lying down. Appropriate for Gestational Age Yes DANE Razo Date 10/03/23 Appropriate for Gestational Age Yes DANE Mercado RN Date 10/03/23 OB NST charge Yes Complete NST Note via Write Note Yes The provider's electronic signature indicates the NST is reactive/appropriate for gestational age. *Note to provider: If an addendum is required, open the patient's chart and click on the note under the Nurse/Allied Health tab.
== END 2023-10-03 19:21 | disposition home or self-care (01) ==
LOC: OB OUT 17:41 → OB 17:41
PROVIDERS: Visit Provider Obstetrics & Gynecology
DX: O10.913 Unspecified pre-existing hypertension complicating pregnancy, third trimester (principal); Z3A.28 28 weeks gestation of pregnancy
CPT/HCPCS: 59025; G0463

== ENCOUNTER 2023-10-04 10:46 | Outpatient (CLI) | payer OTHER, SELFPAY ==
--- NOTE | 2023-10-04 11:00 | CRLHL7_ITS ---
For Patients: As a result of the Century Cures Act, medical imaging exams and procedure reports are released immediately into your electronic medical record. You may view this report before your referring provider. If you have questions, please contact your health care provider. HISTORY: anatomic survey. COMPARISON: Limited Ob ultrasound from 08/17/2023 and early OB ultrasound from 06/13/2023. TECHNIQUE: Ultrasound examination of the is performed with transabdominal technique. A biophysical profile was also performed. FINDINGS: A single intrauterine gestation is seen in cephalic presentation with regular cardiac activity at 138 beats per minute. The placenta is posterior and to the right and is free of the cervical os. The placental grade is 1. The amniotic fluid volume is increased visually. Single deepest vertical pocket: Elevated at 10.6 cm. NAT elevated at 33.1 cm. These findings indicate new polyhydramnios. BPD: 7.5 cm 30 weeks 0 days HC: 27.8 cm 30 weeks 3 days AC: 26.8 cm 30 weeks 6 days. 96th percentile FL: 5.6 cm 29 weeks 2 days The estimated age by ultrasound is 30 weeks 1 day, with an estimated date of delivery of 12/12/2023. This correlates and increase in rate of growth compared to the clinical age of 28 weeks 3 days and the previous ultrasound. The ultrasound ratios are normal. The estimated weight of 1500 grams is at the 94th percentile based on the clinical dates. The biophysical profile score is normal at 8/8. IMPRESSION: 1. Single intrauterine gestation in cephalic presentation with regular cardiac activity. 2. Estimated gestational age is 30 weeks 1 day. 3. Increase in rate of growth compared to clinical dates and previous ultrasound. 4. The estimated weight of 1500 grams is at the 94th percentile based on the clinical dates. 5. New polyhydramnios, elevated single deepest pocket of 10.6 centimeters and elevated NAT of 33.1 cm. 6. The biophysical profile score is normal at 8/8. Dictated by Berny Alonzo MD @ 10/07/2023 11:16:41 PM (Electronically Signed)
== END 2023-10-04 10:47 | disposition home or self-care (01) ==
LOC: US 10:47
PROVIDERS: Visit Provider Obstetrics & Gynecology
DX: O10.913 Unspecified pre-existing hypertension complicating pregnancy, third trimester (principal); O40.3XX0 Polyhydramnios, third trimester, not applicable or unspecified; Z3A.30 30 weeks gestation of pregnancy
CPT/HCPCS: 76816; 76819; 82565; 82570; 84156; 84450; 84460; 84520; 86592

== ENCOUNTER 2023-10-08 10:41 | Outpatient (CLI) | payer OTHER, SELFPAY ==
--- NOTE | 2023-10-08 11:00 | CRLHL7_ITS ---
For Patients: As a result of the Century Cures Act, medical imaging exams and procedure reports are released immediately into your electronic medical record. You may view this report before your referring provider. If you have questions, please contact your health care provider. INDICATION: polyhydramnios TECHNIQUE: Real time rebollar scale imaging of the fetus was performed. COMPARISON: 10/04/2023 FINDINGS: Sonographic imaging demonstrates a single living intrauterine gestation. Fetus demonstrates a regular cardiac rate of 165 beats per minute. Fetus has a vertex position. The placenta lies posteriorly. Amniotic fluid volume single deepest pocket of 9.3 cm. NAT 23.8 cm. The estimated weight is 1511gm which lies at the 78th %. On the prior OB ultrasound dated 10/04/2023 the estimated weight was at the 94th percentile. BPD 89th percentile. HC is 75th percentile. AC 83rd percentile. FL 39th percentile. The fetus was active and demonstrated normal breathing movements. There was normal flexion and extension of the trunk and extremities. IMPRESSION: Normal biophysical profile score 8/8. Sonographic gestational age 30 weeks 2 days and sonographic due date of 12/15/2023. Sonographic age 9 days ahead of the clinical age. Estimated weight 78th percentile. Abdominal circumference 83rd percentile. NAT 23.8 cm. SDP 9.3 cm. Dictated by Nemesio Guerrero MD @ 10/08/2023 1:42:29 PM (Electronically Signed)
== END 2023-10-08 10:42 | disposition home or self-care (01) ==
LOC: US 10:41
PROVIDERS: Visit Provider Obstetrics & Gynecology
DX: O40.3XX0 Polyhydramnios, third trimester, not applicable or unspecified (principal); Z3A.30 30 weeks gestation of pregnancy
CPT/HCPCS: 76816; 76819

== ENCOUNTER 2023-10-09 14:30 | Outpatient (CLI) | payer OTHER, SELFPAY | END 2023-10-09 14:31 | disposition home or self-care (01) | LOC: NFLDREF 10-17 15:03 | PROVIDERS: Visit Provider Obstetrics & Gynecology | DX: O10.913 Unspecified pre-existing hypertension complicating pregnancy, third trimester (principal); Z3A.29 29 weeks gestation of pregnancy | CPT/HCPCS: 82565; 82570; 84156; 84450; 84460; 84520 ==

== ENCOUNTER 2023-10-16 10:36 | Outpatient (CLI) | payer OTHER, SELFPAY ==
--- NOTE | 2023-10-16 10:45 | CRLHL7_ITS ---
For Patients: As a result of the Cures Act, medical imaging exams and procedure reports are released immediately into your electronic medical record. You may view this report before your referring provider. If you have questions, please contact your health care provider. OBSTETRICAL ULTRASOUND LIMITED - BIOPHYSICAL PROFILE, 10/16/2023 INDICATION: Gestational diabetes mellitus. KRYSTEN by LMP: 12/24/2023 Gestational age: 30 weeks 1 day COMPARISON: 10/08/2023, 10/04/2023, 08/17/2023. TECHNIQUE: Transabdominal obstetrical ultrasound. FINDINGS: Gestation: Single Cervix: Not visualized positioning: Vertex Amniotic fluid: 8 cm SDP NAT: 25.2 cm BIOPHYSICAL PROFILE: Total score: 8 Gross body movements: 2 tone: 2 Respiratory activity: 2 Amniotic fluid SDP: 2 Placenta position: Posterior heart rate: 147 bpm IMPRESSION: 1) Normal biophysical profile score of 8/8. 2) Polyhydramnios. KEE URRUTIA M.D. Body/Diagnostic Radiologist [employer] [email or web address] Transcribed: 12:[address]/Dictated by: Kee Urrutia MD @ 10/17/2023 9:38:00 AM (Electronically Signed)
== END 2023-10-16 10:37 | disposition home or self-care (01) ==
LOC: US 10:36
PROVIDERS: Visit Provider Obstetrics & Gynecology
DX: O24.419 Gestational diabetes mellitus in pregnancy, unspecified control (principal); O40.3XX0 Polyhydramnios, third trimester, not applicable or unspecified; Z3A.30 30 weeks gestation of pregnancy
CPT/HCPCS: 76819

== ENCOUNTER 2023-10-31 07:57 | Outpatient (CLI) | payer OTHER, SELFPAY ==
--- NOTE | 2023-10-31 08:15 | CRLHL7_ITS ---
For Patients: As a result of the Century Cures Act, medical imaging exams and procedure reports are released immediately into your electronic medical record. You may view this report before your referring provider. If you have questions, please contact your health care provider. INDICATION: CHTN, obesity TECHNIQUE: Real time rebollar scale imaging of the fetus was performed. COMPARISON: 10/16/2023 FINDINGS: Sonographic imaging demonstrates a single living intrauterine gestation. Fetus demonstrates a regular cardiac rate of 149 beats per minute. Fetus has a vertex position. The placenta lies posteriorly. Amniotic fluid volume appears normal and there is a single deepest pocket of 5.1 cm. The estimated weight is 2356gm which lies at the 91st %. On the prior OB ultrasound dated 10/08/2023 the estimated weight was at the 77th percentile. BPD 75th percentile. HC is 79th percentile. AC 97th percentile. FL 58th percentile. The fetus was active and demonstrated normal breathing movements. There was normal flexion and extension of the trunk and extremities. IMPRESSION: Normal biophysical profile score 8/8. Sonographic gestational age 34 weeks 0 days and a sonographic due date 12/12/2023. Sonographic ages 12 days ahead of the clinical age. Estimated weight 91st percentile. Abdominal circumference 97th percentile. Dictated by Nemesio Guerrero MD @ 11/01/2023 6:19:57 AM (Electronically Signed)
== END 2023-10-31 07:58 | disposition home or self-care (01) ==
LOC: US 07:58
PROVIDERS: Visit Provider Obstetrics & Gynecology
DX: O10.913 Unspecified pre-existing hypertension complicating pregnancy, third trimester (principal); O99.213 Obesity complicating pregnancy, third trimester; Z3A.34 34 weeks gestation of pregnancy
CPT/HCPCS: 76816; 76819

== ENCOUNTER 2023-10-31 09:16 | Outpatient (CLI) | payer OTHER, SELFPAY | END 2023-10-31 09:17 | disposition home or self-care (01) | PROVIDERS: Visit Provider Obstetrics & Gynecology | DX: O10.913 Unspecified pre-existing hypertension complicating pregnancy, third trimester (principal); Z3A.32 32 weeks gestation of pregnancy | CPT/HCPCS: 76816; 76819; 82565; 82570; 84156; 84450; 84460; 84520 ==

== ENCOUNTER 2023-11-04 17:04 | Outpatient (CLI) | payer OTHER, SELFPAY ==
[2023-11-04] VITALS (9 sets, daily range): BP systolic 126–150; BP diastolic 69–91; PULSE 75
[2023-11-04 17:52] LABS: Hematocrit 42.5 % (33.0-51.0); Mean Corpuscular HGB Conc 33 gm/dL (32-36); Mean Corpuscular Hemoglobin 30 pg (26-34); Mean Corpuscular Volume 91 fL (80-100); Platelet Count* 231 K/uL (140-440); Red Blood Count 4.66 m/uL (4.00-5.20); White Blood Count* 13.25 K/uL (4.50-11.00)
[2023-11-04 18:07] LABS: Slide Review Reflex No
[2023-11-04 18:09] LABS: Total Protein Urine 44 mg/dL
[2023-11-04 18:09] LABS: Alanine Aminotransferase* 19 U/L (4-35); Aspartate Amino Transferase* 25 U/L (12-35); Creatinine* 0.5 mg/dL (0.5-1.5); Estimated Glomerular Filt Rate 132 ml/min
[2023-11-04 18:11] LABS: Creatinine Urine 81.2 mg/dL; Protein Creatinine Ratio Urine 0.54 (0-0.19)
[2023-11-04] MEDS: NIFEdipine 30 MG TAB.ER.24 PO (18:50)
--- NOTE | 2023-11-04 19:22 | P.OBLDTN_ITS ---
OB - Triage/Final Diagnosis Visit Information Time Seen by Provider: 19:22 Date Seen: 11/04/23 Narrative: The patient is a 27 year old 2 para 0 at 32 weeks gestation by LMP, who presents with elevated blood pressures at home. is complicated by ch ronic hypertension (no meds), GDMA1, rescue cerclage, obesity, depression and anxiety. Hailee notes having several mild range blood pressures at home today. This morning, her BP was 133/103 and recheck was 128/87 and this evening BP was 147/107. She denies any headache, vision changes or right upper quadrant pain. No chest pain or dyspnea. Denies any regular/painful uterine contractions, va ginal bleeding or leaking of fluids. Evaluation Laboratory results: Laboratory Tests 11/04/23 11/04/23 Range/Units 17:46 17:34 WBC 13.25 H (4.50-11.00) K/uL RBC 4.66 (4.00-5.20) m/uL Hgb 14.0 (12.0-16.0) gm/dL Hct 42.5 (33.0-51.0) % MCV 91 (80-100) fL MCH 30 (26-34) pg MCHC 33 (32-36) gm/dL Plt Count 231 (140-440) K/uL Creatinine 0.5 (0.5-1.5) mg/dL Estimated GFR 132 ml/min AST 25 (12-35) U/L ALT 19 (4-35) U/L Urine Creatinine 81.2 mg/dL Protein/Creatinin Ratio 0.54 H (0-0.19) Urine Total Protein 44 mg/dL Vital signs: Vital Signs - 24 hr 11/04/23 17:30 11/04/23 17:41 11/04/23 18:05 Pulse Rate 75 75 Blood Pressure 145/69 H 150/73 H 136/91 H 11/04/23 18:20 11/04/23 18:35 Pulse Rate Blood Pressure 147/88 H 127/80 Comments: General: Alert and oriented, in no acute distress Blood pressure monitoring has been ongoing, where she has had several mild range blood pressures throughout time in triage. heart rate: Category 1. Baseline is 150 beats per minute, moderate variability, accelerations present and decelerations absent. [place]: No contractions PreE labs were obtained and WNL. Of note, UPCR boaz from 0.26 to 0.54 in the last 4 days. Final Diagnosis (1) Pre-eclampsia superimposed on chronic hypertension: Status: Acute Problem details: SI preE without SF diagnosed in triage on 11/03, by BP exacerbation with proteinuria of 0.54 on UPCR. Asymptomatic with otherwise normal HELLP labs. Nifedipine 30mg XL daily started. monitoring was reactive. BMZ administered after discussion of risks/benefits. Her GDMA1 was reportedly diagnosed by US findings of macrosomia and polyhydramnios, despite passing both her early and mid- 3 hour GTT. She notes her fasting BG in the last week has been in the 80s, 1 hour postprandial values <110. Plan weekly testing with BPPs, weekly provider visit and weekly HELLP labs. Will send task to clinic to coordinate BMZ #2 tomorrow. Explained iatrogenic elevation in BG transiently. Plan BID BP checks, where patient will present to care with any BPs >=160/110 or headache, vision changes and RUQ pain. All questions answered. Return precautions reinforced. (2) Gestational diabetes: Status: Acute (3) Chronic hypertension affecting : Status: Acute (4) Cervical cerclage suture present: Status: Acute Problem details: Jenkins cerclage at the [facility] 07/06/2023 (5) History of loss in prior , currently : Status: Acute (6) Obesity: Status: Acute
[2023-11-04] MEDS: BETAMETHASONE SOD PHOS/ACETATE 6 MG/ML ML 12 MG IM (19:45)
--- NOTE | 2023-11-04 20:29 | PC.OBNST ---
NST Note NST Note Start: 11/04/23 17:19 Freq: ONCE Status: Active Protocol: Document 11/04/23 17:19 HEIDI (Rec: 11/04/23 20:29 HEIDI Desktop) NST Note 2 Para (# of births) 0 EDC 12/24/23 Gestational Age In Weeks & Days 32 Weeks & 6 Days High Risk Factors High Blood Pressure - Preexisting,Diabetes - Gestational Diet Controlled Patient Presented with Complaint(s) of Other Other Complaints Elevated BPs at home Reactive Yes Appropriate for Gestational Age Yes DANE Etienne, RN Date 11/04/23 Reactive Yes Appropriate for Gestational Age Yes DANE Rose RNC Date 11/04/23 OB NST charge Yes Complete NST Note via Write Note Yes The provider's electronic signature indicates the NST is reactive/appropriate for gestational age. *Note to provider: If an addendum is required, open the patient's chart and click on the note under the Nurse/Allied Health tab.
== END 2023-11-04 20:00 | disposition home or self-care (01) ==
LOC: OB OUT 17:04 → OB 17:04
PROVIDERS: Visit Provider Obstetrics & Gynecology
DX: O24.419 Gestational diabetes mellitus in pregnancy, unspecified control (principal); O11.3 Pre-existing hypertension with pre-eclampsia, third trimester; Z3A.32 32 weeks gestation of pregnancy
CPT/HCPCS: 36415; 59025; 82565; 82570; 84156; 84450; 84460; 85027; G0463; A9270; J0702

== ENCOUNTER 2023-11-08 13:09 | Outpatient (CLI) | payer OTHER, SELFPAY | END 2023-11-08 13:10 | disposition home or self-care (01) | LOC: NFLDREF 11-12 17:50 | PROVIDERS: Visit Provider Obstetrics & Gynecology | DX: O10.913 Unspecified pre-existing hypertension complicating pregnancy, third trimester (principal) | CPT/HCPCS: 82565; 82570; 84156; 84450; 84460; 84520 ==

== ENCOUNTER 2023-11-15 12:40 | Outpatient (CLI) | payer OTHER, SELFPAY | END 2023-11-15 12:41 | disposition home or self-care (01) | LOC: NFLDREF 11-16 08:59 | PROVIDERS: Visit Provider Obstetrics & Gynecology | DX: O10.919 Unspecified pre-existing hypertension complicating pregnancy, unspecified trimester (principal) | CPT/HCPCS: 82565; 82570; 84156; 84450; 84460; 84520 ==

== ENCOUNTER 2023-11-15 12:46 | Outpatient (CLI) | payer OTHER, SELFPAY ==
--- NOTE | 2023-11-15 13:00 | CRLHL7_ITS ---
For Patients: As a result of the Century Cures Act, medical imaging exams and procedure reports are released immediately into your electronic medical record. You may view this report before your referring provider. If you have questions, please contact your health care provider. INDICATION: Obesity, CHTN, Hypertension with pre-eclampsia COMPARISON: 10/31/2023 TECHNIQUE: Real time rebollar scale imaging of the fetus was performed. Without non-stress testing. FINDINGS: Sonographic imaging demonstrates a single living intrauterine gestation. Fetus demonstrates a regular cardiac rate of 150 beats per minute. Fetus has a vertex position. The amniotic fluid volume appears normal and there is a single deepest pocket measurement of 6.9 cm. The fetus was active and demonstrated normal breathing movements. There was normal flexion and extension of the trunk and extremities. IMPRESSION: Normal biophysical profile score of 8 out of 8. Dictated by Nemesio Guerrero MD @ 11/16/2023 10:30:42 AM (Electronically Signed)
== END 2023-11-15 12:47 | disposition home or self-care (01) ==
LOC: US 12:46
PROVIDERS: Visit Provider Obstetrics & Gynecology
DX: O11.9 Pre-existing hypertension with pre-eclampsia, unspecified trimester (principal)
CPT/HCPCS: 76819; 82565; 82570; 84156; 84450; 84460; 84520

== ENCOUNTER 2023-11-20 13:47 | Outpatient (CLI) | payer OTHER, SELFPAY | END 2023-11-20 13:48 | disposition home or self-care (01) | PROVIDERS: Visit Provider Obstetrics & Gynecology | DX: Z34.93 Encounter for supervision of normal pregnancy, unspecified, third trimester (principal); Z3A.35 35 weeks gestation of pregnancy | CPT/HCPCS: 76819; 82565; 82570; 84156; 84450; 84460; 84520; 87081; 87653 ==

== ENCOUNTER 2023-11-21 10:58 | Outpatient (CLI) | payer OTHER, SELFPAY ==
[2023-11-21] VITALS (15 sets, daily range): BP systolic 136–145; BP diastolic 81–89; PULSE 82–106; RESP 18; TEMP 36.9; O2SAT 97–99
[2023-11-21] MEDS: ACETAMINOPHEN 500 MG TABLET 1000 MG PO (11:54)
--- NOTE | 2023-11-21 14:28 | PM.OBLDTN ---
OB - Triage/Final Diagnosis Visit Information Time Seen by Provider: 12:45 Date Seen: 11/21/23 Date of evaluation: 11/21/23 Narrative: The patient is a 27 year old 1 para 0 at 35 2/7 weeks gestation by LMP, who presents with concerns about blood pressure. The patient had been at work this morning, and did not feel right. She had a headache and felt dizzy. She took her blood pressure at work at [employer] and found to be quite elevated. She went to the emergency department at [facility] and was evaluated by the emergency room physician. Her initial blood pressure was 162/11, repeat 156/90. Labs were obtained which were so significant for normal platelet count (215), normal ALT (16), normal AST(22), and normal creatinine (0.46). Blood glucose, random, was 100. As she was stable and not in imminent danger, she was sent here for further testing. She presented to the [facility] triage for further evaluation and monitoring. Upon arrival, the patient complained of a mild headache. She was administered acetaminophen, and the headache resolved. Blood pressures were stable and not in the severe range. heart rate monitoring was reactive and reassuring. We reviewed signs symptoms for her to watch for that would prompt medical evaluation. She will be discharged home today and will follow [facility] as [facility]. Reason for evaluation: other (Increased blood pressure) Evaluation Vital signs: Vital Signs - 24 hr 11/21/23 11:18 11/21/23 11:23 11/21/23 11:25 Temperature Pulse Rate 100 Respiratory Rate Blood Pressure 145/89 H Pulse Oximetry 98 98 11/21/23 11:28 11/21/23 11:30 11/21/23 11:33 Temperature Pulse Rate 94 Respiratory Rate Blood Pressure 139/86 Pulse Oximetry 98 99 11/21/23 11:34 11/21/23 11:38 11/21/23 11:43 Temperature 98.4 F Pulse Rate Respiratory Rate 18 Blood Pressure Pulse Oximetry 97 98 11/21/23 11:48 11/21/23 11:53 11/21/23 12:03 Temperature Pulse Rate 96 90 Respiratory Rate Blood Pressure 138/81 136/82 Pulse Oximetry 98 98 11/21/23 12:18 11/21/23 12:34 11/21/23 12:48 Temperature Pulse Rate 88 82 88 Respiratory Rate Blood Pressure 138/86 138/84 140/85 H Pulse Oximetry Fetus (Single) Heart Rate Baseline: 150 Customer Marketing Assistant Variability: Moderate (6-25) Monitor Accelerations: Present Monitor Decelerations: None Final Diagnosis (1) Pre-eclampsia superimposed on chronic hypertension: Status: Acute Problem details: SI preE without SF diagnosed in triage on 11/03, by BP exacerbation with proteinuria of 0.54 on UPCR. Asymptomatic with otherwise normal HELLP labs. Nifedipine 30mg XL daily started. monitoring was reactive. BMZ administered after discussion of risks/benefits. Her GDMA1 was reportedly diagnosed by US findings of macrosomia and polyhydramnios, despite passing both her early and mid- 3 hour GTT. She notes her fasting BG in the last week has been in the 80s, 1 hour postprandial values <110. Plan weekly testing with BPPs, weekly provider visit and weekly HELLP labs. Will send task to clinic to coordinate BMZ #2 tomorrow. Explained iatrogenic elevation in BG transiently. Plan BID BP checks, where patient will present to care with any BPs >=160/110 or headache, vision changes and RUQ pain. All questions answered. Return precautions reinforced.
--- NOTE | 2023-11-21 14:42 | PC.OBNST ---
NST Note NST Note Start: 11/21/23 11:07 Freq: ONCE Status: Active Protocol: Document 11/21/23 13:00 WK (Rec: 11/21/23 14:42 WK [id number]) NST Note 2 Para (# of births) 0 EDC 12/24/23 Gestational Age In Weeks & Days 35 Weeks & 2 Days High Risk Factors High Blood Pressure - Preexisting Patient Presented with Complaint(s) of Headache Other Complaints Had high BP while being seen at the Emergency Room in [place]. Came to the Center for evaluation. Reactive Yes DANE Small RNC Date 11/21/23 Reactive Yes DANE Adan Date 11/21/23 OB NST charge Yes Complete NST Note via Write Note Yes The provider's electronic signature indicates the NST is reactive/appropriate for gestational age. *Note to provider: If an addendum is required, open the patient's chart and click on the note under the Nurse/Allied Health tab.
== END 2023-11-21 13:35 | disposition home or self-care (01) ==
LOC: OB OUT 10:58 → OB 11:00
PROVIDERS: Visit Provider Obstetrics & Gynecology
DX: O11.3 Pre-existing hypertension with pre-eclampsia, third trimester (principal); O24.419 Gestational diabetes mellitus in pregnancy, unspecified control; Z3A.36 36 weeks gestation of pregnancy
CPT/HCPCS: 59025; 82565; 82570; 84156; 84450; 84460; 84520; 85027; G0463; A9270

== ENCOUNTER 2023-11-22 14:19 | Outpatient (CLI) | payer OTHER, SELFPAY ==
[2023-11-22] VITALS (10 sets, daily range): BP systolic 129–144; BP diastolic 74–84; PULSE 75–86; RESP 16; TEMP 37.1; O2SAT 97
[2023-11-22 14:55] LABS: Hematocrit 43.6 % (33.0-51.0); Hemoglobin* 14.6 gm/dL (12.0-16.0); Mean Corpuscular HGB Conc 34 gm/dL (32-36); Mean Corpuscular Hemoglobin 30 pg (26-34); Mean Corpuscular Volume 90 fL (80-100); Platelet Count* 219 K/uL (140-440); Red Blood Count 4.84 m/uL (4.00-5.20); Slide Review Reflex No; White Blood Count* 12.14 K/uL (4.50-11.00)
[2023-11-22 15:44] LABS: Alanine Aminotransferase* 18 U/L (4-35); Aspartate Amino Transferase* 29 U/L (12-35); Blood Urea Nitrogen* 11 mg/dL (5-24); Creatinine* 0.5 mg/dL (0.5-1.5); Estimated Glomerular Filt Rate 132 ml/min
--- NOTE | 2023-11-22 16:33 | PC.OBNST ---
NST Note NST Note Start: 11/22/23 14:32 Freq: ONCE Status: Active Protocol: Document 11/22/23 16:30 MMB (Rec: 11/22/23 16:33 MMB [id number]) NST Note 2 Para (# of births) 0 EDC 12/24/23 Gestational Age In Weeks & Days 35 Weeks & 3 Days High Risk Factors High Blood Pressure - Preexisting,Diabetes - Gestational Diet Controlled Patient Presented with Complaint(s) of Other Other Complaints Dr Gibbons sent down from clinic for r/o pre-e after confirmed high BP. Reactive Yes Appropriate for Gestational Age Yes DANE Corral RN Date 11/22/23 Reactive Yes Appropriate for Gestational Age Yes DANE Colindres RN Date 11/22/23 OB NST charge Yes Complete NST Note via Write Note Yes The provider's electronic signature indicates the NST is reactive/appropriate for gestational age. *Note to provider: If an addendum is required, open the patient's chart and click on the note under the Nurse/Allied Health tab.
== END 2023-11-22 16:10 | disposition home or self-care (01) ==
LOC: OB OUT 14:19 → OB 14:20
PROVIDERS: Visit Provider Obstetrics & Gynecology
DX: O10.913 Unspecified pre-existing hypertension complicating pregnancy, third trimester (principal); O24.419 Gestational diabetes mellitus in pregnancy, unspecified control; Z3A.35 35 weeks gestation of pregnancy
CPT/HCPCS: 36415; 59025; 82565; 84450; 84460; 84520; 85027; G0463

== ENCOUNTER 2023-11-27 11:56 | Outpatient (CLI) | payer OTHER, SELFPAY ==
--- NOTE | 2023-11-27 12:15 | CRLHL7_ITS ---
For Patients: As a result of the Century Cures Act, medical imaging exams and procedure reports are released immediately into your electronic medical record. You may view this report before your referring provider. If you have questions, please contact your health care provider. INDICATION: Pre-existing hypertension TECHNIQUE: Real time rebollar scale imaging of the fetus was performed. COMPARISON: 11/20/2023 FINDINGS: Sonographic imaging demonstrates a single living intrauterine gestation. Fetus demonstrates a regular cardiac rate of 154 beats per minute. Fetus has a vertex position. The placenta lies posteriorly. Amniotic fluid volume appears normal and there is a single deepest pocket of 5.6 cm. The estimated weight is 3283gm which lies at the 89th %. On the prior OB ultrasound dated 10/31/2023 the estimated weight was at the 91st percentile. BPD 66th percentile. HC 28th percentile. AC greater than 97th percentile. FL is 24th percentile. The fetus was active and demonstrated normal breathing movements. There was normal flexion and extension of the trunk and extremities. IMPRESSION: Normal biophysical profile score 8/8. Sonographic gestational age 36 weeks 6 days and a sonographic due date 12/19/2023. Sonographic age 5 days ahead of the clinical age. Estimated weight 89th percentile. Abdominal circumference greater than 97th percentile. Dictated by Nemesio Guerrero MD @ 11/27/2023 1:11:02 PM (Electronically Signed)
== END 2023-11-27 11:57 | disposition home or self-care (01) ==
LOC: US 11:56
PROVIDERS: Visit Provider Obstetrics & Gynecology
DX: O10.913 Unspecified pre-existing hypertension complicating pregnancy, third trimester (principal); Z3A.36 36 weeks gestation of pregnancy
CPT/HCPCS: 76816; 76819; 82565; 84450; 84460; 84520

== ENCOUNTER 2023-11-27 12:53 | Outpatient (CLI) | payer OTHER, SELFPAY ==
[2023-11-27 13:11] VITALS: BP 134/78; PULSE 89
[2023-11-27 15:05] VITALS: BP 119/68; PULSE 68; TEMP 36.8
--- NOTE | 2023-11-27 15:16 | PC.OBNST ---
NST Note NST Note Start: 11/27/23 13:05 Freq: ONCE Status: Active Protocol: Document 11/27/23 15:12 HCR (Rec: 11/27/23 15:16 HCR [id number]) NST Note 2 Para (# of births) 0 EDC 12/24/23 Gestational Age In Weeks & Days 36 Weeks & 1 Days High Risk Factors High Blood Pressure - Gestational,Diabetes - Gestational Diet Controlled, History of Labor/ Delivery Patient Presented with Complaint(s) of Other Other Complaints Cerclage removal Reactive Yes Appropriate for Gestational Age Yes DANE Morton RN Date 11/27/23 Reactive Yes Appropriate for Gestational Age Yes DANE Singh RN Date 11/27/23 OB NST charge Yes Complete NST Note via Write Note Yes The provider's electronic signature indicates the NST is reactive/appropriate for gestational age. *Note to provider: If an addendum is required, open the patient's chart and click on the note under the Nurse/Allied Health tab.
[2023-11-28 13:03] LABS: Strep B DNA Probe POSITIVE (Negative)
[2023-11-28 13:20] LABS: Strep B Susceptibility Needed? No
== END 2023-11-27 15:12 | disposition home or self-care (01) ==
LOC: OB CLI 12:54 → OB 12:56
PROVIDERS: Visit Provider Obstetrics & Gynecology
DX: Z39.1 Encounter for care and examination of lactating mother (principal)
CPT/HCPCS: 59025; 76816; 76819; 82565; 84450; 84520; 87081; 87653; G0463

== ENCOUNTER 2023-11-29 12:44 | Outpatient (CLI) | payer OTHER, SELFPAY ==
[2023-11-29 12:52] VITALS: PULSE 101; O2SAT 96
[2023-11-29 12:54] VITALS: RESP 18; TEMP 36.8
[2023-11-29 12:59] VITALS: BP 135/81; PULSE 91
[2023-11-29 13:15] VITALS: BP 133/78; PULSE 84
--- NOTE | 2023-11-29 13:53 | PC.OBNST ---
NST Note NST Note Start: 11/29/23 12:55 Freq: ONCE Status: Active Protocol: Document 11/29/23 13:25 WK (Rec: 11/29/23 13:53 WK [id number]) NST Note 2 Para (# of births) 0 EDC 12/24/23 Gestational Age In Weeks & Days 36 Weeks & 3 Days High Risk Factors High Blood Pressure - Preexisting Patient Presented with Complaint(s) of Decreased movement Reactive Yes RN Geovanny RNC Date 11/29/23 Reactive Yes DANE Diaz RN Date 11/29/23 OB NST charge Yes Complete NST Note via Write Note Yes The provider's electronic signature indicates the NST is reactive/appropriate for gestational age. *Note to provider: If an addendum is required, open the patient's chart and click on the note under the Nurse/Allied Health tab.
== END 2023-11-29 13:42 | disposition home or self-care (01) ==
LOC: OB OUT 12:44 → OB 12:45
PROVIDERS: Visit Provider Obstetrics & Gynecology
DX: O36.8130 Decreased fetal movements, third trimester, not applicable or unspecified (principal); Z3A.36 36 weeks gestation of pregnancy
CPT/HCPCS: 59025; G0463

== ENCOUNTER 2023-12-02 15:51 | Inpatient (IN) | payer OTHER, SELFPAY ==
[2023-12-02] VITALS (10 sets, daily range): BP systolic 117–150; BP diastolic 59–89; PULSE 73–96; RESP 18; TEMP 36.9–37; BMI 45.7
--- NOTE | 2023-12-02 17:06 | W.PM.LDBA ---
Subjective History of Present Illness Date Seen: 12/02/23 Narrative: Patient is being admitted to Labor and Delivery for IOL due to CHTN with superimposed preeclampsia w/o severe features. She is a 27 year old at 36 6/7 weeks gestation. Her full history and physical was dictated by Dr. CURTIS on 11/27/23. Please see this for details. 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 Patient has continued utilizing Nifedipine 60mg in the morning and 30 mg in the night time.No new concerns or complaints today. Specific Issues/Plans : 17w3d loss after PPROM w/ first Spouse: Chano. Baby: Boy H&P by CGM on 11/27/23 # Physical exam (cervial length 2.7cm) indicated Jenkins cerclage placed on 07/06/23 at [facility]-REMOVED ON 11/27/23 - [place] tape with knot at 12 o clock, also started vaginal progesterone therapy. [facility] recommended short term disability until at least 24 weeks. - History of second-trimester loss, PPROM at 17 weeks and 3 days delivered on 06/17/2022, this was complicated by retained products, we did hysteroscopy and D&C on 10/2022 - LVL 2 USN at [facility] on 07/30/2023. - No more cervical length measurements indicated after cerclage placement - On vaginal progesterone daily #GDMA1, Mild polyhydramnios-Resolved -NAT: 24cm on 10/09/23, NAT: 33cm on 10/04/23? Re- evaluated on 10/16/23 NAT: 25.2cm again consistent with mild polyhydramnios. -Suspected GDM, macrosomia, Failed Early 1 hr GTT. 3 hr GTT: 04/26. Repeat 3hrGTT at 28 weeks 04/26 elevated. -Monitor BS at home, MFM f/u ordered # Chronic hypertension with superimposed preeclampsia without severe features - Diagnosed on 11/03 in triage, started nifedipine 30mg XL daily - UPCR 0.54 from 0.26 - Twice Weekly visits and testing - Weekly preE labs - Nifedipine XL 30mg daily started on 11/04/2023,increased to 30MG BID on 11/08/23, increase to 60mg in am and 30 mg in pm on 11/20/23 - BMTZ: 11/03 and 11/05/2023 - IOL at 37 weeks, to be consented/scheduled at future visit at 35 week visit. # Severe depression and anxiety, PHQ 9: 22 BULMARO 7: 20 at [facility] Acute grief Extreme anxiety regarding the given past history, no therapy since the loss Is now open to therapy, referral is placed At [facility], was self tapering off of her duloxetine: duloxetine 30 mg every other day. Recommendation to restart duloxetine 30 mg daily x1 week, then increase to 60 mg daily 06/12/2023: PHQ-9: 14 and BULMARO 7: 15 # conceived with Clomid # Obesity, BMI 40.5 Hemoglobin A1c: 5.0 Early 1 hour GTT: elevated at 167 on 08/08/2023. 3 hour GTT entirely normal. Level 2 ultrasound and MFM consult Offer nutrition referral: declined 06/12/2023 Anesthesiology consult: Weekly testing starting at 32 weeks Growth ultrasound between 32 and 36 weeks # Abdominal Pain s/p cerclage placement - Several ED visits - Last 07/18 with cramping, cervical length 2.6 (from 3.0) w/ improved sx - discharged with strict precautions & close interval follow up Imaging: Level 2 ultrasound completed on 07/30/2023: Posterior placenta without evidence of previa, normal amount of amniotic fluid, visualized anatomy normal. Patient has a follow-up ultrasound scheduled with M on 08/13/2023 to evaluate missing anatomy. Recommendations: Cerclage in place, continue vaginal progesterone 200 mg nightly started after cerclage placement, continue until 36 weeks. Remove cerclage around 36-37 weeks, earlier if indicated. May work if patient desires, no further cervical length ultrasounds are needed. Continue routine care. 08/13/23: F/u limited advanced level anatomy scan. [place] in cephalic presentation. Images needing completion were obtained. No abnormalities. Posterior placenta. Normal appearing amniotic volume. 10/04/2023: Vertex, single deepest pocket of amniotic fluid 10.6 cm, NAT: 33.1 cm. BPP 8/8. EFW: 94 percentile, abdominal circumference: 96 percentile. 10/31/23: Vertex, single deepest pocket of amniotic fluid: 5.1 cm, BPP 8/8. EFW: 91.1 percentile. Abdominal circumference 96.8 percentile. 11/08/2023: Bedside NAT 18.6 w/ SDP 6.4cm. Reactive NST. Modified BPP reassuring. 11/15/2023: Vertex, BPP 8/8, single deepest pocket of amniotic fluid 6.9 cm. 11/20/2023: Vertex, BPP 8/8, single deepest pocket of amniotic fluid 6.5 cm. 11/27/2023: Vertex, single deepest pocket of amniotic fluid: 5.6 cm, EFW: 3283 g, 89th percentile. BPD: 66 percentile, HC: 28th percentile, AC: More than the 97th percentile, FL: 24th percentile. BPP 8/8. Tdap: 10/09/23 OB - Problem Based A/P Additional Plan (1) Pre-eclampsia superimposed on chronic hypertension: Problem details: SI preE without SF diagnosed in triage on 11/03, by BP exacerbation with proteinuria of 0.54 on UPCR. Asymptomatic with otherwise normal HELLP labs. Nifedipine 30mg XL daily started. monitoring was reactive. BMZ administered after discussion of risks/benefits. Her GDMA1 was reportedly diagnosed by US findings of macrosomia and polyhydramnios, despite passing both her early and mid- 3 hour GTT. She notes her fasting BG in the last week has been in the 80s, 1 hour postprandial values <110. Plan weekly testing with BPPs, weekly provider visit and weekly HELLP labs. Will send task to clinic to coordinate BMZ #2 tomorrow. Explained iatrogenic elevation in BG transiently. Plan BID BP checks, where patient will present to care with any BPs >=160/110 or headache, vision changes and RUQ pain. All questions answered. Return precautions reinforced. Status: Acute (2) Gestational diabetes: Status: Acute (3) Depression with anxiety: Status: Acute (4) Obesity: Status: Acute Plan 1. IOL plan: Encouraged ambulation, labor circuit. Will start IV Oxytocin at 9:30pm per protocol. AROM tomorrow am or sooner if labor progresses quickly after midnight. 2. CHTN wit superimposed preeclampsia w/o severe features: Continue PO Nifedipine ER 60mg in am and 30 mg in pm. HELLP labs collected upon admission. Will collect new labs if concerns develop for severe hypertension. 3. GDMA1: Monitor BS per protocol, treat as needed. 4. Pain management as needed. 5. GBS positive start ampicillin with the start of IV Oxytocin. 6. Continue Duloxetine for mood. OB Exam Physical Exam Vital signs: Temp Pulse Resp BP 98.5 F 84 18 149/88 H 12/02/23 16:18 12/02/23 16:18 12/02/23 16:18 12/02/23 16:18 Detailed Labor and Delivery Exam Patient Gravid: Yes Dilation (cm): 3 Effacement (%): 80 Cervix position: mid Consistency: soft Tachysystole: No Fetus (Single) Station: -1 Amniotic Membrane Status: intact Heart Rate Baseline: 160 (Upon admission baseline at 150s, baby is moving a lot at this moment and currently baseline at 160s. Moderate variability and accelerations, will give IVFs and FU closely.) Monitor Accelerations: Present Monitor Decelerations: None Assisted Variability: Moderate (6-25)
[2023-12-02 18:00] LABS: Basophils Percent Auto 0.2 % (0.0-3.0); Eosinophils Percent Auto 1.1 % (0.0-7.0); Hematocrit 42.6 % (33.0-51.0); Hemoglobin* 14.7 gm/dL (12.0-16.0); Immature Granulocytes Pct Auto 0.3 %; Lymphocytes Percent Auto 16.7 % (20-44); Mean Corpuscular HGB Conc 35 gm/dL (32-36); Mean Corpuscular Hemoglobin 31 pg (26-34); Mean Corpuscular Volume 89 fL (80-100); Monocytes Percent Auto 7.3 % (0.0-11.0); Neutrophils Percent Auto 74.4 % (42.0-72.0); Platelet Count* 238 K/uL (140-440); RDW Coefficient of Variation % 12.7 % (11.5-15.5); White Blood Count* 12.46 K/uL (4.50-11.00)
[2023-12-02] MEDS: LACTATED RINGERS 1000 ML 1,000 ML 1200 ML IV (18:00)
[2023-12-02 18:14] LABS: Alanine Aminotransferase* 18 U/L (4-35); Aspartate Amino Transferase* 34 U/L (12-35); Blood Urea Nitrogen* 11 mg/dL (5-24); Creatinine* 0.5 mg/dL (0.5-1.5); Est. Creatinine Clearance* 152.08; Estimated Glomerular Filt Rate 132 ml/min
[2023-12-02 18:24] LABS: Slide Review Reflex No
[2023-12-02 18:44] LABS: INR 0.89 (0.91-1.10); Prothrombin Time 12.6 Seconds
[2023-12-02 18:45] LABS: Partial Thromboplastin Time* 30 Seconds (23-33)
[2023-12-02 18:47] LABS: Fibrinogen* 630 mg/dL (200-450)
[2023-12-02] MEDS: DULOXETINE 30 MG CAPSULE DR PO (21:11)
[2023-12-02] MEDS: NIFEdipine 30 MG TAB.ER.24 PO (21:11)
[2023-12-02] MEDS: AMPICILLIN 2 GM in 0.9 % SODIUM CHLORIDE Mini-bag 100 ML IVPB (21:26)
[2023-12-02] MEDS: OXYTOCIN 30 unit/500 ML in NS 30 UNIT/500 ML BAG IVPB (21:26)
[2023-12-02] MEDS: ACETAMINOPHEN 500 MG TABLET 1000 MG PO (21:26)
[2023-12-02] MEDS: hydrOXYzine pamoate 25 MG CAPSULE 100 MG PO (21:26)
[2023-12-03] VITALS (55 sets, daily range): BP systolic 92–169; BP diastolic 50–99; PULSE 63–100; RESP 16–18; TEMP 36.7–37.1; O2SAT 97
[2023-12-03] MEDS: LACTATED RINGERS 1000 ML 1,000 ML 6 ML IV (01:28)
[2023-12-03] MEDS: AMPICILLIN 1 GM in 0.9 % SODIUM CHLORIDE Mini-bag 100 ML IVPB ×3 (01:29→09:46)
[2023-12-03] MEDS: NIFEdipine 30 MG TAB.ER.24 60 MG PO (06:00)
[2023-12-03 06:30] LABS: Hematocrit 41.8 % (33.0-51.0); Hemoglobin* 14.1 gm/dL (12.0-16.0); Mean Corpuscular HGB Conc 34 gm/dL (32-36); Mean Corpuscular Hemoglobin 30 pg (26-34); Mean Corpuscular Volume 89 fL (80-100); Platelet Count* 219 K/uL (140-440); Red Blood Count 4.69 m/uL (4.00-5.20); White Blood Count* 11.79 K/uL (4.50-11.00)
[2023-12-03 06:42] LABS: Slide Review Reflex No
[2023-12-03 06:45] LABS: Alanine Aminotransferase* 17 U/L (4-35); Aspartate Amino Transferase* 29 U/L (12-35); Blood Urea Nitrogen* 8 mg/dL (5-24); Creatinine* 0.4 mg/dL (0.5-1.5); Estimated Glomerular Filt Rate 139 ml/min
[2023-12-03 06:47] LABS: Uric Acid* 4.8 mg/dL (2.2-8.4)
[2023-12-03 07:30] LABS: INR 0.95 (0.91-1.10); Prothrombin Time 13.2 Seconds
[2023-12-03 07:31] LABS: Fibrinogen* 620 mg/dL (200-450); Partial Thromboplastin Time* 29 Seconds (23-33)
--- NOTE | 2023-12-03 08:07 | PM.OBPNL ---
Subjective Time Seen by Provider: 08:00 Date Seen: 12/03/23 Narrative: The patient feels well this morning. Slept overnight. Starting to become aware of contractions, nonpainful. Fetus remains active. Objective Exam: General appearance: alert, cooperative, no acute distress Abdomen: gravid, nontender Vital Signs: Last Vital Signs Temp 98.5 F 12/03/23 05:41 Pulse 73 12/03/23 07:30 Resp 18 12/03/23 05:41 BP 144/91 H 12/03/23 07:30 Comments: One elevated BP in the severe range overnight, labs pending. Pelvic Exam Dilation (cm): 4 Effacement (%): 95 Station: -1 Contractions Monitor mode: External Contraction Frequency: 1-3 minutes Contraction pattern: Irregular Contraction intensity: Mild Pitocin Rate (mU/min): 12 Assessment Assessment: induction ongoing Station: -1 Status: Category l Heart Rate Baseline: 140 (Upon admission baseline at 150s, baby is moving a lot at this moment and currently baseline at 160s. Moderate variability and accelerations, will give IVFs and FU closely.) Shelter Variability: Moderate (6-25) Monitor Accelerations: Present Monitor Decelerations: None Plan Plan: AROM performed, clear fluid with bloody show. Continue pitocin infusion. Plans epidural for active labor t some point, would like to stay active as long as possible.
[2023-12-03] MEDS: LACTATED RINGERS 1000 ML 1,000 ML 1113 ML IV (09:22)
[2023-12-03] MEDS: LIDOCAINE 2% (PF) 5 ML VIAL EPIDURAL (09:33)
[2023-12-03] MEDS: fentaNYL 250 MCG/5 ML inj 100 MCG EPIDURAL (09:33)
[2023-12-03] MEDS: ROPIVACAINE 0.2% 100 ml 100 ML 12 MG EPIDURAL (09:41)
--- NOTE | 2023-12-03 09:51 | P.ANBPRC_ITS ---
[facility] Medical History Spotting in early ?O26.859 - Spotting complicating , unspecified trimester (ICD-10) Elevated blood pressure affecting in first trimester, antepartum ?O16.1 - Unspecified maternal hypertension, first trimester (ICD-10) Cramping affecting , antepartum ?O26.899 - Other specified related conditions, unspecified trimester (ICD-10) ?R10.9 - Unspecified abdominal pain (ICD-10) premature rupture of membranes ?O42.919 - premature rupture of membranes, unspecified as to length of time between rupture and onset of labor, unspecified trimester (ICD-10) Surgical History History of D&C ?Z98.890 - Other specified postprocedural states (ICD-10) Family History Unknown Factor V Leiden mutation Social History Narrative: 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 Marital status: . Zoroastrian/cultural needs: no. Chemical or radiation exposure: no. Pre- tobacco use: no. Pre- alcohol use: no. Current tobacco use: no. Current alcohol use: no. Recreational drug use: no. Dietary restrictions: no. Blood transfusion acceptable in an emergency: yes. PSYCHOSOCIAL HISTORY: History of depression or currently depressed: Yes, see HPI. Current physical, emotional, or sexual mistreatment: no. Problems that will make it hard to make it to appointments: no. What is your current living situation?: I presently have a place to live Problems where you live: no known problems In the past 12 months, utilities in danger of being shut off: no In past 12 months, lack of transportation kept you from medical appts, meetings, work, or getting things needed for daily living: no In the past 12 mos, have been you worried that your food would run out before you had money to buy more?: never true In the past 12 mos, the food you bought just didn't last and you didn't have money to buy more?: never true Smoking Status: Never smoker Do you use any of these nicotine containing products: None Second hand tobacco smoke exposure: No How often do you have a drink containing alcohol: never AUDIT-C Alcohol total score: 0 Non-prescribed substance use: denies use How often does anyone, including family, friends and others, physically hurt you : never How often does anyone, including family, friends and others, insult or talk down to you: never How often does anyone, including family, friends and others, threaten you with harm: never How often does anyone, including family, friends and others, scream or curse at you: never Little interest or pleasure in doing things: not at all Feeling down, depressed, or hopeless: several days service: No Meds Home Medications and Allergies Home Medications ?Medication ?Instructions ?Recorded ?Confirmed ?Type ascorbate calcium (vitamin C) 500 500 mg PO QDAY 05/15/23 12/02/23 History mg tablet cholecalciferol (vitamin D3) 125 125 mcg PO QDAY 05/15/23 12/02/23 History mcg (5,000 unit) capsule docosahexaenoic acid 200 mg 200 mg PO DAILY 05/15/23 12/02/23 History capsule ( DHA) doxylamine succinate 25 mg tablet 25 mg PO QHS PRN 05/15/23 12/02/23 History (Unisom (doxylamine)) pyridoxine (vitamin B6) 25 mg 25 mg PO QDAY 05/15/23 12/02/23 History tablet aspirin 81 mg capsule 81 mg PO DAILY 07/18/23 12/02/23 History duloxetine 30 mg capsule,delayed 30 mg PO DAILY 08/08/23 12/02/23 History release Allergies Allergy/AdvReac Type Severity Reaction Status Date / Time latex Allergy Intermediate Rash Verified 12/02/23 16:13 Results Labs Labs: Laboratory Results - last 24 hr 12/02/23 12/03/23 17:51 06:10 WBC 12.46 H 11.79 H RBC 4.80 4.69 Hgb 14.7 14.1 Hct 42.6 41.8 MCV 89 89 MCH 31 30 MCHC 35 34 RDW Coeff of Obed 12.7 Plt Count 238 219 Neut % (Auto) 74.4 H Lymph % (Auto) 16.7 L [place] % (Auto) 7.3 Eos % (Auto) 1.1 Baso % (Auto) 0.2 Neut # (Auto) 9.30 H Lymph # (Auto) 2.10 [place] # (Auto) 0.90 Eos # (Auto) 0.10 Baso # (Auto) 0.00 Abs Immat Gran (auto) 0.00 Imm/Tot Granulo (auto) 0.3 INR 0.89 L 0.95 APTT 30 29 Fibrinogen 630 H 620 H BUN 11 8 Creatinine 0.5 0.4 L Estimated Creat Clear 152.08 190.10 Estimated GFR 132 139 Uric Acid 4.8 AST 34 29 ALT 18 17 Blood Type AB Positive Antibody Screen NEGATIVE Vital Signs Vital Signs: Last Vital Signs Temp 98.1 F 12/03/23 08:45 Pulse 83 12/03/23 09:43 Resp 18 12/03/23 05:41 BP 136/77 12/03/23 09:43 Weight: 124.738 kg Height: 165.1 cm Anesthesia Procedures Epidural Insertion Patient Location: OB Start Time: : Stop Time: :00 Start Date: 12/03/23 Stop Date: 12/03/23 Reason for Block: primary anesthetic Patient Position: sitting Performed By: Jean Parra Preanesthetic Checklist: IV checked, risks and benefits discussed, surgical consent, monitors and equipment checked, pre-op evaluation, timeout performed and anesthesia consent Prep: chlorhexidine gluconate Monitoring: blood pressure monitoring, laboratory monitor, continuous pulse oximetry and heart rate Approach: midline Vertebral Space: lumbar (1-5) Needle Type: Tuohy needle Injection Technique: continuous catheter Needle gauge: 17 Needle Length (cm): 10 cm Needle Insertion Depth (cm): 6 Catheter Gauge: 19 Catheter Type: multi-orifice Catheter at skin depth (cm): 12 Test Dose Result: negative and lidocaine 1.5% with epinephrine 1 to 200,000 Events: other
[2023-12-03] MEDS: ONDANSETRON 2 MG/ML inj 4 MG IV (09:57)
[2023-12-03] MEDS: PHENYLEPHRINE 100 MCG/ML SYRINGE IVP (10:20)
[2023-12-03] MEDS: OXYTOCIN 30 unit/500 ML in NS 30 UNIT/500 ML BAG 300 UNIT IVPB (13:52)
[2023-12-03] MEDS: LIDOCAINE 1 % PF 30 ML INJECTION (14:01)
[2023-12-03] MEDS: TRANEXAMIC ACID 100 MG/ML INJ 1000 MG IV (14:02)
[2023-12-03] MEDS: miSOPROStoL 800 MCG/4 TABLET PR (14:12)
[2023-12-03] MEDS: LACTATED RINGERS 1000 ML 1,000 ML IV (14:35)
[2023-12-03 14:52] LABS: Basophils Percent Auto 0.1 % (0.0-3.0); Eosinophils Percent Auto 0.3 % (0.0-7.0); Hematocrit 36.3 % (33.0-51.0); Hemoglobin* 12.1 gm/dL (12.0-16.0); Immature Granulocytes Pct Auto 0.3 %; Lymphocytes Percent Auto 7.4 % (20-44); Mean Corpuscular HGB Conc 33 gm/dL (32-36); Mean Corpuscular Hemoglobin 30 pg (26-34); Mean Corpuscular Volume 91 fL (80-100); Monocytes Percent Auto 7.2 % (0.0-11.0); Neutrophils Percent Auto 84.7 % (42.0-72.0); Platelet Count* 219 K/uL (140-440); White Blood Count* 15.04 K/uL (4.50-11.00)
[2023-12-03 14:58] LABS: Slide Review Reflex No
--- NOTE | 2023-12-03 15:06 | W.PM.OBVAGDE ---
OB Procedure Vag Delivery Mother Details Mother Details: The patient is a 27 year-old, 2, Para 0020, admitted on 12/02/23 at 36 6/7 weeks gestation for induction of labor secondary to pre-eclampsia without severe features superimposed on chronic hypertension. Cervix was 3/80/-1 on admission. Slow pitocin infusion was initiated overnight. : 2 Para: 0 Weeks Gestation: 36.6 Admission Date: 12/02/23 Additional Details Amniotic Membrane Status: intact Amniotic Membrane Rupture Date: 12/03/23 Amniotic Membrane Rupture Time: 07:59 Amniotic Membrane Fluid Description: Clear Analgesia/Anesthesia Type: Epidural Waterbirth: No Pitcoin: Yes Intrapartal Events: Labor Induction Induction Method: per pitocin protocol Delivery augmentation: rupture of membranes Labor Onset: 11:15 Complete: 11:55 Pushin:22 Heart: heart tones during second stage were category 1, with occasional variable decelerations. Delivery Details Delivery Date: 12/03/23 Delivery Time: 13:47 Route of delivery: Gender: Male Infant Viability: Alive; Heart Rate Present Position at Delivery: OA (with right nuchal hand) Delivery Details: Delivered over intact perineum via spontaneous vaginal delivery. was placed on maternal abdomen.? Cord was clamped and cut after a 30-60 second delay. Nose and mouth were bulb suctioned.? Infant weight 7 # 5 ounces. Brisk bleeding noted following delivery. Some was due to uterine atony, which resolved by lower uterine segment clot removal and bimanual massage, IV Pitocin, tranexamic acid 1000 mg IV, and misoprostol 800 mcg per rectum. Additional bleeding was noted from the laceration sites. I enlisted the aid of one of the nurses and my partner, Dr. Caraballo, to help with visualization and retraction. There was a small 1 cm tear in the sphincter capsule, which was reapproximated with two interrupted sutures of 2-0 Vicryl. The apex of the vaginal tear was identified high in the vagina, and was reapproximated with 3-0 chromic in the usual locking fashion for the mucosa and a layered fashion over the rectal sphincter. 3-0 chromic on an SH needle was also used to reapproximate the bilateral labial tears for hemostasis. The vaginal tissues in labia were quite edematous, and friable following the repair. A Beasley catheter was sterilely placed into the vagina, and vaginal packing was placed to put some additional pressure on the repair sites. The patient felt dizzy and nauseous during the initial repair, but felt better at the conclusion of the repair. Stat labs were obtained: Hemoglobin dropped two points to 12.1, coags were normal. 1 Minute Interval Total Score: 7 5 Minute Interval Total Score: 9 Additional Details Shoulder Dystocia: No Placenta Delivery Time: 13:55 Placental Delivery Description: Spontaneous Delivery repair: Vicryl and Chromic Procedure Done: Global Blood Loss: 1,000 Laceration: Vaginal - 3rd Degree (partial 3rd degree (small tear noted in capsule, reinforced with interrupted 2-0 vicryl)) Episiotomy Description: None Blood Loss Measurement Type: QBL Bakri Used: No Sponge/Need Count Correct: Yes (20 sponges, 5 needles) Cord Vessel Description: 3 Vessels Event Summary Status: Mother and were stable after delivery. Disposition: floor
[2023-12-03 15:10] LABS: Partial Thromboplastin Time* 27 Seconds (23-33)
[2023-12-03 15:11] LABS: Fibrinogen* 505 mg/dL (200-450)
[2023-12-03] MEDS: IBUPROFEN 600 MG TABLET PO ×2 (15:11→21:06)
[2023-12-03 15:12] LABS: INR 1.03 (0.91-1.10); Prothrombin Time 14.1 Seconds
--- NOTE | 2023-12-03 17:47 | P.OBPN_ITS ---
OB - PN:Subj Subjective Time Seen by Provider: 17:45 Date Seen: 12/03/23 Patient comments OB post-: no complaints OB - PN: Obj Exam Physical Exam: Vital signs: Temp Pulse Resp BP 98.1 F 85 18 130/72 12/03/23 13:15 12/03/23 17:04 12/03/23 05:41 12/03/23 17:04 Constitutional: Constitutional: no acute distress Routine Exam: Comments: Vaginal packing removed. No active bleeding noted from laceration repair sites. OB - PN: Obj Data Labs Labs: Laboratory Results - last 24 hr 12/02/23 12/03/23 12/03/23 17:51 06:10 14:46 WBC 12.46 H 11.79 H 15.04 H RBC 4.80 4.69 4.00 Hgb 14.7 14.1 12.1 Hct 42.6 41.8 36.3 MCV 89 89 91 MCH 31 30 30 MCHC 35 34 33 RDW Coeff of Obed 12.7 13.0 Plt Count 238 219 219 Neut % (Auto) 74.4 H 84.7 H Lymph % (Auto) 16.7 L 7.4 L [place] % (Auto) 7.3 7.2 Eos % (Auto) 1.1 0.3 Baso % (Auto) 0.2 0.1 Neut # (Auto) 9.30 H 12.70 H Lymph # (Auto) 2.10 1.10 [place] # (Auto) 0.90 1.10 H Eos # (Auto) 0.10 0.00 Baso # (Auto) 0.00 0.00 Abs Immat Gran (auto) 0.00 0.00 Imm/Tot Granulo (auto) 0.3 0.3 INR 0.89 L 0.95 1.03 APTT 30 29 27 Fibrinogen 630 H 620 H 505 H BUN 11 8 Creatinine 0.5 0.4 L Estimated Creat Clear 152.08 190.10 Estimated GFR 132 139 Uric Acid 4.8 AST 34 29 ALT 18 17 Blood Type AB Positive Antibody Screen NEGATIVE OB - PN: A/P Delivery Assessment and Plan (1) Pre-eclampsia superimposed on chronic hypertension: Problem details: SI preE without SF diagnosed in triage on 11/03, by BP exacerbation with proteinuria of 0.54 on UPCR. Asymptomatic with otherwise normal HELLP labs. Nifedipine 30mg XL daily started. monitoring was reactive. BMZ administered after discussion of risks/benefits. Her GDMA1 was reportedly diagnosed by US findings of macrosomia and polyhydramnios, despite passing both her early and mid- 3 hour GTT. She notes her fasting BG in the last week has been in the 80s, 1 hour postprandial values <110. Plan weekly testing with BPPs, weekly provider visit and weekly HELLP labs. Will send task to clinic to coordinate BMZ #2 tomorrow. Explained iatrogenic elevation in BG transiently. Plan BID BP checks, where patient will present to care with any BPs >=160/110 or headache, vision changes and RUQ pain. All questions answered. Return precautions reinforced. Status: Acute (2) Gestational diabetes: Status: Acute (3) Depression with anxiety: Status: Acute (4) Obesity: Status: Acute Plan Vaginal packing removed. Remove kwon catheter. Plan day: 0 Plan: routine care
[2023-12-03] MEDS: ACETAMINOPHEN 500 MG TABLET 1000 MG PO (19:27)
[2023-12-03] MEDS: BENZOCAINE/MENTHOL SPRAY 85 GM AEROSOL 1 APPLIC TOPICAL (20:57)
[2023-12-03] MEDS: DOCUSATE SODIUM 100 MG CAPSULE PO (21:06)
[2023-12-03] MEDS: DULOXETINE 30 MG CAPSULE DR PO (21:08)
[2023-12-04] VITALS (7 sets, daily range): BP systolic 117–131; BP diastolic 78–89; PULSE 76–98; RESP 16–24; TEMP 36.5–37.1; O2SAT 96–98
[2023-12-04] MEDS: ACETAMINOPHEN 500 MG TABLET 1000 MG PO ×4 (01:56→20:29)
[2023-12-04] MEDS: IBUPROFEN 600 MG TABLET PO ×3 (06:04→17:29)
[2023-12-04] MEDS: SODIUM CHLORIDE 0.9 % (FLUSH) 10 ML SYRINGE IVF (06:05)
[2023-12-04 06:40] LABS: Hemoglobin* 10.1 gm/dL (12.0-16.0)
[2023-12-04] MEDS: DOCUSATE SODIUM 100 MG CAPSULE PO (08:01)
[2023-12-04] MEDS: NIFEdipine 30 MG TAB.ER.24 60 MG PO (08:02)
--- NOTE | 2023-12-04 09:20 | P.OBPN_ITS ---
OB - PN:Subj Subjective Date Seen: 12/04/23 Patient comments OB post-: no complaints Narrative: Hailee is a 27 y.o. who was admitted to [facility] for induction of labor.? She had a NVD with PPH now stable.? ?? The patient feels well.? The pain is well controlled with current medications.? She has no new complaints.? She is breast feeding and reports things are going well.? the patient has done well.? Vitals have been stable.? She has remained afebrile.? Has a good appetite, is tolerating a general diet.? She is voiding without difficulty.? She is passing gas and has not had a bowel movement.? She is ambulating and denies any dizziness.? Has Small amount of rubra lochia.? OB - PN: Obj Exam Physical Exam: Vital signs: Temp Pulse Resp BP Pulse Ox O2 Del Method 98.7 F 84 18 123/89 97 Room Air 12/04/23 05:55 12/04/23 05:55 12/04/23 05:55 12/04/23 05:55 12/04/23 05:55 12/04/23 05:55 Narrative: GENERAL APPEARANCE:? normal affect, alert, no distress? MOOD:? appropriate? HEENT: normocephalic, neck supple, full ROM? CHEST:? Symmetrical chest wall movement.? Normal respiratory effort.? Clear to auscultation ? HEART:? regular rate and rhythm? ABDOMEN:? soft, non-tender. Uterine fundus is firm, at Umbilicus, Midline and is appropriate for the stage of recovery.? Bowel sounds present.? PERINEUM:? mild edema of the perineum, there is a 3rd degree laceration that is healing well.? EXTREMITIES:? normal and no edema? OB - PN: Obj Data Labs Labs: Laboratory Results - last 24 hr 12/03/23 12/04/23 14:46 06:26 WBC 15.04 H RBC 4.00 Hgb 12.1 10.1 L Hct 36.3 MCV 91 MCH 30 MCHC 33 RDW Coeff of Obde 13.0 Plt Count 219 Neut % (Auto) 84.7 H Lymph % (Auto) 7.4 L [place] % (Auto) 7.2 Eos % (Auto) 0.3 Baso % (Auto) 0.1 Neut # (Auto) 12.70 H Lymph # (Auto) 1.10 [place] # (Auto) 1.10 H Eos # (Auto) 0.00 Baso # (Auto) 0.00 Abs Immat Gran (auto) 0.00 Imm/Tot Granulo (auto) 0.3 INR 1.03 APTT 27 Fibrinogen 505 H OB - PN: A/P Delivery Assessment and Plan (1) Pre-eclampsia superimposed on chronic hypertension: Problem details: SI preE without SF diagnosed in triage on 11/03, by BP exacerbation with proteinuria of 0.54 on UPCR. Asymptomatic with otherwise normal HELLP labs. Nifedipine 30mg XL daily started. monitoring was reactive. BMZ administered after discussion of risks/benefits. Her GDMA1 was reportedly diagnosed by US findings of macrosomia and polyhydramnios, despite passing both her early and mid- 3 hour GTT. She notes her fasting BG in the last week has been in the 80s, 1 hour postprandial values <110. Plan weekly testing with BPPs, weekly provider visit and weekly HELLP labs. Will send task to clinic to coordinate BMZ #2 tomorrow. Explained iatrogenic elevation in BG transiently. Plan BID BP checks, where patient will present to care with any BPs >=160/110 or headache, vision changes and RUQ pain. All questions answered. Return precautions reinforced. Status: Acute (2) Gestational diabetes: Status: Acute (3) Depression with anxiety: Status: Acute (4) Obesity: Status: Acute (5) care and examination immediately after delivery: Status: Acute (6) Lactating mother: Status: Acute Plan day: 1 Plan: routine care Comments: G 2 P 1 status post NVD?with PPH?? 1.? Continue route PP cares? 2.? .? May see if desired? 3.? Anticipate discharge home tomorrow? 4. ?Acute anemia.? Iron supplement ordered. 5. Stable BPs on Nifedipine 60mg daily
[2023-12-04] MEDS: FERROUS SULFATE 325 MG TABLET 650 MG PO (10:12)
--- NOTE | 2023-12-04 12:44 | PM.ANPOST ---
Post Anesthesia Note Post Anesthesia Note Patient seen: Inpatient Respiratory Status: adequate Cardiovascular Status: adequate Mental Status: baseline Pain: adequate Temp: baseline Anesthetic awareness: N/A Complications: none Follow care: none
[2023-12-04] MEDS: DULOXETINE 30 MG CAPSULE DR PO (20:29)
[2023-12-04 23:21] LABS: Rapid Plasma Reagin (RPR) Non Reactive (Non Reactive)
[2023-12-05 03:02] VITALS: BP 130/82; PULSE 91; RESP 16; TEMP 37.1
[2023-12-05 07:30] VITALS: BP 121/78; PULSE 97; RESP 16; O2SAT 98
[2023-12-05 08:26] LABS: Hemoglobin* 11.5 gm/dL (12.0-16.0)
[2023-12-05] MEDS: DOCUSATE SODIUM 100 MG CAPSULE PO (09:29)
[2023-12-05] MEDS: NIFEdipine 30 MG TAB.ER.24 60 MG PO (09:30)
[2023-12-05] MEDS: ACETAMINOPHEN 500 MG TABLET 1000 MG PO ×2 (09:30→16:42)
[2023-12-05] MEDS: LACTATED RINGERS 1000 ML 1,000 ML IV (09:34)
[2023-12-05 12:42] LABS: Basophils Percent Auto 0.2 % (0.0-3.0); Eosinophils Percent Auto 1.3 % (0.0-7.0); Hematocrit 31.2 % (33.0-51.0); Hemoglobin* 10.4 gm/dL (12.0-16.0); Immature Granulocytes Pct Auto 0.5 %; Lymphocytes Percent Auto 13.1 % (20-44); Mean Corpuscular HGB Conc 33 gm/dL (32-36); Mean Corpuscular Hemoglobin 30 pg (26-34); Mean Corpuscular Volume 90 fL (80-100); Monocytes Percent Auto 6.2 % (0.0-11.0); Neutrophils Percent Auto 78.7 % (42.0-72.0); Platelet Count* 237 K/uL (140-440); RDW Coefficient of Variation % 13.1 % (11.5-15.5); Red Blood Count 3.45 m/uL (4.00-5.20); White Blood Count* 14.94 K/uL (4.50-11.00)
[2023-12-05 12:43] LABS: Slide Review Reflex No
[2023-12-05 12:53] LABS: Albumin* 3.4 g/dL (3.3-5.0); Chloride* 105 mmol/L (96-114)
[2023-12-05 12:54] LABS: Potassium* 3.6 mmol/L (3.6-5.1); Sodium* 136 mmol/L (135-149)
[2023-12-05 12:56] LABS: Alkaline Phosphatase* 107 U/L (40-150); Anion Gap 4 mEq/L (7-15); Aspartate Amino Transferase* 29 U/L (12-35); Bilirubin Total* 0.3 mg/dL (0.1-1.5); Blood Urea Nitrogen* 8 mg/dL (5-24); Carbon Dioxide* 27 mmol/L (20-32); Creatinine* 0.6 mg/dL (0.5-1.5); Est. Creatinine Clearance* 126.73; Estimated Glomerular Filt Rate 126 ml/min; Total Protein* 6.2 g/dL (6.0-8.3)
[2023-12-05 12:57] LABS: Alanine Aminotransferase* 18 U/L (4-35); Glucose* 103 mg/dL (60-115)
--- NOTE | 2023-12-05 13:29 | P.OBPN_ITS ---
OB - PN:Subj Subjective Time Seen by Provider: 13:00 Date Seen: 12/05/23 Narrative: Hailee is s/p following IOL for SI preE without SF. []. OB - PN: Obj Exam Physical Exam: Vital signs: Temp Pulse Resp BP Pulse Ox O2 Del Method 98.8 F 97 16 121/78 98 Room Air 12/05/23 03:02 12/05/23 07:30 12/05/23 07:30 12/05/23 07:30 12/05/23 07:30 12/05/23 07:30 OB - PN: Obj Data Labs Labs: Laboratory Results - last 24 hr 12/02/23 12/05/23 12/05/23 17:51 08:17 12:32 WBC 14.94 H RBC 3.45 L Hgb 11.5 L 10.4 L Hct 31.2 L MCV 90 MCH 30 MCHC 33 RDW Coeff of Obed 13.1 Plt Count 237 Neut % (Auto) 78.7 H Lymph % (Auto) 13.1 L [place] % (Auto) 6.2 Eos % (Auto) 1.3 Baso % (Auto) 0.2 Neut # (Auto) 11.80 H Lymph # (Auto) 2.00 [place] # (Auto) 0.90 Eos # (Auto) 0.20 Baso # (Auto) 0.00 Abs Immat Gran (auto) 0.10 Imm/Tot Granulo (auto) 0.5 Sodium 136 Potassium 3.6 Chloride 105 Carbon Dioxide 27 Anion Gap 4 L BUN 8 Creatinine 0.6 Estimated Creat Clear 126.73 Estimated GFR 126 Glucose 103 Calcium 9.0 Total Bilirubin 0.3 AST 29 ALT 18 Alkaline Phosphatase 107 Total Protein 6.2 Albumin 3.4 RPR Screen Non Reactive OB - PN: A/P Delivery Assessment and Plan (1) Pre-eclampsia superimposed on chronic hypertension: Problem details: SI preE without SF diagnosed in triage on 11/03, by BP exacerbation with proteinuria of 0.54 on UPCR. Asymptomatic with otherwise normal HELLP labs. Nifedipine 30mg XL daily started. monitoring was reactive. BMZ administered after discussion of risks/benefits. Her GDMA1 was reportedly diagnosed by US findings of macrosomia and polyhydramnios, despite passing both her early and mid- 3 hour GTT. She notes her fasting BG in the last week has been in the 80s, 1 hour postprandial values <110. Plan weekly testing with BPPs, weekly provider visit and weekly HELLP labs. Will send task to clinic to coordinate BMZ #2 tomorrow. Explained iatrogenic elevation in BG transiently. Plan BID BP checks, where patient will present to care with any BPs >=160/110 or headache, vision changes and RUQ pain. All questions answered. Return precautions reinforced. Status: Acute (2) Gestational diabetes: Status: Acute (3) Depression with anxiety: Status: Acute (4) Obesity: Status: Acute (5) care and examination immediately after delivery: Status: Acute (6) Lactating mother: Status: Acute
--- NOTE | 2023-12-05 16:31 | PM.OBPNVD1 ---
OB - PN:Subj Subjective Date Seen: 12/05/23 Narrative: Hailee has continued to have episode throughout the day of feeling lightheaded or that her heart is racing with ambulating. She has only been to the toilet and back so far. Despite attempts to get her some sleep she still has only slept 2 30 minute stretches today. She has been unable to sleep even with baby being watched at the nurses station. She is very uncertain about going home but also wanting to be in her own home and around her dogs again. Labs were WNL and EKG showed normal sinus. We discussed other contributing factors to how she is feeling. She did have a loss so we discussed the impact that can have on bonding and coping and being in the hospital can also be triggering. She was tearful with this conversation. She is agreeable to a therapy referral. We discussed increasing the dose of her Cymbalta but she is hesitant as in the past it has made her lightheaded and very flat feeling. Encourage her and her partner to monitor her mood closely and to seek care with any concerns. Discussed that medication adjustments are sometimes needed for situational periods of time. We discussed switching Nifedipine from 60mg daily to 30mg BID. Discussed this change with Dr. Nagy and she is agreeable to this dose change. Will also do orthostatic BPs. Encouraged her to both take a walk to make sure that was tolerable to her as well as take Vistaril to help her get a couple of hours of sleep. Will plan to reevaluate her comfort level for discharge this evening after these things have been done. Hailee and her partner are comfortable with this plan. OB - PN: Obj Exam Physical Exam: Vital signs: Temp Pulse Resp BP Pulse Ox O2 Del Method 98.8 F 97 16 121/78 98 Room Air 12/05/23 03:02 12/05/23 07:30 12/05/23 07:30 12/05/23 07:30 12/05/23 07:30 12/05/23 07:30 Narrative: GENERAL APPEARANCE:? normal affect, alert, no distress? MOOD:? appropriate? CHEST:? clear to auscultation and percussion? HEART:? regular rate and rhythm? ABDOMEN:? soft, non-tender the uterine fundus is U/2 and is appropriate for the stage of recovery.? PERINEUM:? mild edema of the perineum, there is a 3rd degree laceration that is healing well.? EXTREMITIES:? normal and no edema? OB - PN: Obj Data Labs Labs: Laboratory Results - last 24 hr 12/02/23 12/05/23 12/05/23 17:51 08:17 12:32 WBC 14.94 H RBC 3.45 L Hgb 11.5 L 10.4 L Hct 31.2 L MCV 90 MCH 30 MCHC 33 RDW Coeff of Obed 13.1 Plt Count 237 Neut % (Auto) 78.7 H Lymph % (Auto) 13.1 L [place] % (Auto) 6.2 Eos % (Auto) 1.3 Baso % (Auto) 0.2 Neut # (Auto) 11.80 H Lymph # (Auto) 2.00 [place] # (Auto) 0.90 Eos # (Auto) 0.20 Baso # (Auto) 0.00 Abs Immat Gran (auto) 0.10 Imm/Tot Granulo (auto) 0.5 Sodium 136 Potassium 3.6 Chloride 105 Carbon Dioxide 27 Anion Gap 4 L BUN 8 Creatinine 0.6 Estimated Creat Clear 126.73 Estimated GFR 126 Glucose 103 Calcium 9.0 Total Bilirubin 0.3 AST 29 ALT 18 Alkaline Phosphatase 107 Total Protein 6.2 Albumin 3.4 RPR Screen Non Reactive OB - PN: A/P Delivery Assessment and Plan (1) Pre-eclampsia superimposed on chronic hypertension: Problem details: SI preE without SF diagnosed in triage on 11/03, by BP exacerbation with proteinuria of 0.54 on UPCR. Asymptomatic with otherwise normal HELLP labs. Nifedipine 30mg XL daily started. monitoring was reactive. BMZ administered after discussion of risks/benefits. Her GDMA1 was reportedly diagnosed by US findings of macrosomia and polyhydramnios, despite passing both her early and mid- 3 hour GTT. She notes her fasting BG in the last week has been in the 80s, 1 hour postprandial values <110. Plan weekly testing with BPPs, weekly provider visit and weekly HELLP labs. Will send task to clinic to coordinate BMZ #2 tomorrow. Explained iatrogenic elevation in BG transiently. Plan BID BP checks, where patient will present to care with any BPs >=160/110 or headache, vision changes and RUQ pain. All questions answered. Return precautions reinforced. Status: Acute (2) Gestational diabetes: Status: Acute (3) Depression with anxiety: Status: Acute (4) Obesity: Status: Acute (5) care and examination immediately after delivery: Status: Acute (6) Lactating mother: Status: Acute Plan day: 2 Plan: routine care Comments: Reevaluate in the evening for potential discharge vs continuing hospitalization.
[2023-12-05] MEDS: hydrOXYzine pamoate 25 MG CAPSULE 50 MG PO (17:08)
[2023-12-05 21:43] VITALS: BP 127/85; PULSE 102; RESP 20; TEMP 36.4; O2SAT 97
[2023-12-05] MEDS: IBUPROFEN 600 MG TABLET PO (22:00)
[2023-12-05] MEDS: DULOXETINE 30 MG CAPSULE DR PO (22:01)
[2023-12-05] MEDS: hydrOXYzine pamoate 25 MG CAPSULE 100 MG PO (22:01)
[2023-12-06 05:30] VITALS: BP 120/81; PULSE 90; RESP 16; TEMP 37; O2SAT 96
--- NOTE | 2023-12-06 08:11 | PM.OBDSVD1 ---
DS: Providers Provider Date Seen: 12/06/23 Date of admission: 12/02/23 15:51 Primary care physician: Not a Local Provider Admitting Clinician: Christal Courtney MD Attending Physician on discharge: Jodie Delgado APRN, CNM DS: Diagnosis Discharge Diagnosis (1) Lactating mother: Status: Acute (2) care and examination immediately after delivery: Status: Acute (3) Pre-eclampsia superimposed on chronic hypertension: Status: Acute (4) Gestational diabetes: Status: Acute (5) Chronic hypertension affecting : Status: Acute (6) Obesity: Status: Acute (7) Depression with anxiety: Status: Acute (8) Third degree laceration of perineum during delivery, : Status: Acute (9) Immediate hemorrhage: Status: Acute Exam Narrative: Exam Narrative: GENERAL APPEARANCE:? normal affect, alert, no distress MOOD:? appropriate CHEST:? clear to auscultation HEART:? regular rate and rhythm Breasts: Filling, colostrum leaking, nipples intact, but right breast with 3 small blood blisters, no erythema. ABDOMEN:? soft, non-tender the uterine fundus is At Umbilicus, Midline and is appropriate for the stage of recovery. PERINEUM:? mild edema of the perineum, there is a Perineal Laceration,? well approximated. EXTREMITIES:? normal and minimal edema : Const: Vital Signs, click to edit/add: Vital Signs - 24 hr 12/05/23 21:43 12/06/23 05:30 Temperature 97.6 F 98.6 F Pulse Rate [Pulse Oximeter] 102 H 90 Respiratory Rate 20 16 Blood Pressure [Le ft Arm] 127/85 120/81 Pulse Oximetry 97 96 Oxygen Delivery Me thod Room Air Room Air OB - DS: Summary Hospital Course Hospital Course: Hailee is a 27 y.o. G 2 P 1011 who was admitted to [facility] for IOL on 12/02/23 at 36 6/7 weeks gestation for induction of labor secondary to pre-eclampsia without severe features superimposed on chronic hypertension.? She had a NVD that was complicated by PP hemorrhage and third degree laceration. BPs stable on Nifedipine XR 30mg BID. She declined her PP 2 hour glucose due to struggles coping. She has slept well last night and this has helped a lot. she was struggling with emotions due to her previous loss and overall new parent issues. States she has good support at home and her partner is also very supportive. The patient feels well.? The pain is well controlled with current medications.? She has no new complaints.? She is breast feeding and reports things are going well with minimal nipple pain. the patient has done well.? Vitals have been stable.? She has remained afebrile.? Has a good appetite, is tolerating a general diet.? She is voiding without difficulty.? She is passing gas and has had multiple bowel movements. She has colace to continue at home BID.? She is ambulating and denies any dizziness.? Has small amount of rubra lochia. ?? Problems: Anxiety and Depression, PP hemorrage, 3rd degree laceration, GDMA1 Plan: Pt has colace ibuprofen and tylenol at home for use. RX vistaril for breakthrough anxiety. Encouraged to let us know if struggling. Vistaril can decrease milk supply, so advised minimal use. Referral for behavioral care sent as requested. To check BP twice daily at home. See instructions. Iron QOD recommended. Routine support with any additional needs to see us. Peripartum Data Infant delivery method: Vaginal Laceration description: Perineal - 3rd Degree Episiotomy description: None complications: other (1000 cc Hemrhage) Gender: Male Infant Discharge Plan: Home Status at Discharge Overall status at discharge: patient is progressing back to baseline Time Spent with Patient Time attestation: Total time spent providing and/or coordinating discharge services: Time spent: Less than 30 minutes Discharge Plan Discharge Disposition: Home, Self-Care Date of Admission: 12/02/23 15:51 Attending Provider on Discharge: Jodie Delgado Primary Care Provider: Provider,Not a Local Condition: Stable Anticipated Discharge Date/Time: 12/06/23 12:00 Discharge Medications: New nifedipine 30 mg Tablet Extended Release 24hr 30 mg PO BID Qty: 60 0RF ferrous sulfate 325 mg (65 mg iron) Tablet 650 mg PO Q48H Qty: 60 0RF hydroxyzine HCl 50 mg tablet 50 mg PO BID PRNQty: 60 0RF Continued duloxetine 30 mg capsule,delayed release(DR/EC) 30 mg PO DAILY DHA 200 mg capsule 200 mg PO DAILY ascorbate calcium (vitamin C) 500 mg tablet 500 mg PO QDAY cholecalciferol (vitamin D3) 125 mcg (5,000 unit) capsule 125 mcg PO QDAY Hold Instructions: Doctor's Order docusate sodium [Colace] 100 mg capsule 100 mg PO BID Qty: 20 0RF Hold Instructions: not needed Discontinued famotidine 40 mg tablet 40 mg PO QDAY Qty: 60 2RF Unisom (doxylamine) 25 mg tablet 25 mg PO QHS PRN pyridoxine (vitamin B6) 25 mg tablet 25 mg PO QDAY (DME) Test Strips Misc See Rx Instructions .MEDSUPPLY Qty: 100 3RF Rx Instructions: Test blood sugar 4 times daily. (DME) lancets Misc See Rx Instructions .MEDSUPPLY Qty: 100 3RF Rx Instructions: Test blood sugar 4 times daily. (DME) Blood Glucose Meter Misc See Rx Instructions .MEDSUPPLY Qty: 1 0RF Rx Instructions: As directed nifedipine 60 mg tablet extended release 60 mg PO QDAY Qty: 30 0RF nifedipine 30 mg tablet extended release 24hr 30 mg PO QDAY Qty: 30 0RF aspirin 81 mg capsule 81 mg PO DAILY metoclopramide HCl [Reglan] 5 mg tablet 5 - 10 mg PO BID PRN (Reason: nausea and vomiting) Qty: 20 3RF nifedipine 30 mg tablet extended release 30 mg PO QDAY Qty: 30 1RF Discharge Orders: Discharge Order (Routine); Ordered 12/06/23 Ordered By: Jodie Delgado Patient Education: OB High Blood Pressure DC, OB Care, OB Vaginal/Breast Feeding Activity Level: Activity as Tolerated Discharge Diet: Regular Follow Up Appointments: [facility] [Provider Group] Provider,Not a Local [Primary Care Provider] - Tenisha Adan MD [Staff Physician] - [facility] Instructions Discharge Comments: Discharge instructions were reviewed with the patient including signs and symptoms of infection and home going medications Nothing vaginally for 6 weeks: no tampons or intercourse Do not drive while taking narcotic pain medication(s) Off Work or School for 6 weeks Symptoms to report to doctor: ? Bleeding that saturates more than one pad per hour ? Passing clots larger than the size of a golf ball ? Pain not relieved by prescribed medication ? Fever above 100.4 degrees Fahrenheit ? A foul vaginal odor ? Difficulty in emotions, mood, and functions ? Thoughts of hurting yourself and/or ? Painful, reddened area in your breast ? Any drainage, redness, or tenderness in your IV/epidural site ? Severe headache that doesn't improve after taking medications ? Changes in vision, including temporary loss of vision, blurred vision, and/or light sensitivity ? Upper abdominal pain (usually under ribs on the right side) ? Decrease in urination or painful, frequent urinating ? Chest pain ? Shortness of breath ? Tenderness or pain with redness and/swelling in the calf(s) of your leg [facility] for a BP check?in 1-2w Call with BP greater than or equal to 140/90 1-2-week visit: discuss feeding concerns, review control options and support for anxiety/depression, HTN check in. 6-week visit for an annual exam. consultation services are available to all mothers and babies for the first year after delivery.? To make an appointment, please call [phone].?
[2023-12-06] MEDS: DOCUSATE SODIUM 100 MG CAPSULE PO (08:26)
[2023-12-06] MEDS: IBUPROFEN 600 MG TABLET PO (08:26)
[2023-12-06 08:28] VITALS: BP 113/76; BP 87/55; PULSE 90; RESP 16; TEMP 37
[2023-12-06 08:51] VITALS: BP 133/87
[2023-12-06] MEDS: NIFEdipine 30 MG TAB.ER.24 PO (08:52)
[2023-12-06] MEDS: FERROUS SULFATE 325 MG TABLET 650 MG PO (09:20)
== END 2023-12-06 09:38 | disposition home or self-care (01) | DRG 768 ==
PROVIDERS: Advanced Practice Midwife; Admitting Provider Obstetrics & Gynecology; Visit Provider Obstetrics & Gynecology
DX: O11.4 Pre-existing hypertension with pre-eclampsia, complicating childbirth (principal); Z37.0 Single live birth; D62 Acute posthemorrhagic anemia; O90.81 Anemia of the puerperium; O72.1 Other immediate postpartum hemorrhage; O10.92 Unspecified pre-existing hypertension complicating childbirth; O70.20 Third degree perineal laceration during delivery, unspecified; O24.429 Gestational diabetes mellitus in childbirth, unspecified control; O99.824 Streptococcus B carrier state complicating childbirth; O99.344 Other mental disorders complicating childbirth; F32.A Depression, unspecified; F41.9 Anxiety disorder, unspecified; R42 Dizziness and giddiness; O99.214 Obesity complicating childbirth; Z3A.36 36 weeks gestation of pregnancy
CPT/HCPCS: 01967; 36415; 80053; 82565; 82570; 82962; 84156; 84450; 84460; 84520; 84550; 85018; 85025; 85027; 85384; 85610; 85730; 86592; 86850; 86900; 86901; 88307; 93005; A9270; J0290; J2001; J2371; J2405; J2795; J3010; J7120

== ENCOUNTER 2024-01-07 11:06 | Outpatient (CLI) | payer OTHER, SELFPAY ==
--- NOTE | 2024-01-07 14:40 | P.LACCB_ITS ---
Consult Note - Mom Date of Visit Date of visit: 01/07/24 sales representative consultant: Griselda Castrejon Visit Code: Visit Patient's Information Phone number: [phone] : 2 Para: 1 Allergies latex Allergy (Intermediate, Verified 12/20/23 11:26) Rash Mother's Medical History: Medical History (Updated 01/01/24 @ 17:25 by Supriya Cheng MD) Spotting in early ?O26.859 - Spotting complicating , unspecified trimester (ICD-10) Elevated blood pressure affecting in first trimester, antepartum ?O16.1 - Unspecified maternal hypertension, first trimester (ICD-10) Cramping affecting , antepartum ?O26.899 - Other specified related conditions, unspecified trimester (ICD-10) ?R10.9 - Unspecified abdominal pain (ICD-10) premature rupture of membranes ?O42.919 - premature rupture of membranes, unspecified as to length of time between rupture and onset of labor, unspecified trimester (ICD-10) Delivery Information Delivery type: Vaginal Gestational Age: AGA Baby's Information Baby's Age at Visit: 5 weeks Baby's Provider or Clinic: [facility] Reason for Consult Reason for Consult: Mom has 2nd bout of mastitis since delivery 5 weeks ago. First was 12/19, right breast affected. Rx'd with Dicloxacillin x7 days. Mom believes it was better within a few days. Second started on 01/01, left breast affected. Rx'd with Bactrim for 7 days, still on treatment and feeling better. breasts today: Breasts are symmetrical with rounded lower quadrants. No erythema. Nipples are supple, no blisters, cracks or bruising. No tender spots to breast. Past Experience Past Experience: No Current Frequency of Day Feedings: every 2-3 hours, taking 4-5 oz/feed Frequency of Night Feedings: every 3 hours or so, taking 4-5 oz/feed Both Breasts: No Pumping Pumping: Yes Quantity Pumped: varies, see below for details Supplementing EMB Supplement: Yes (Baby takes 4-5 oz/fdg. 24 hour totals 28, 29, 36, and 38 for the last 4 day) Baby Elimination Number of Wet Diapers a Day: 6 or more Number of BM a Day: 6 or more Breast/Nipple Condition Breast Information: Mom is exclusively pumping and bottle feeding her baby boy Elmo. Her current routine: she pumps every 2.5-3 hours when he takes a bottle. From her right side, she expresses 1.5-3 oz From her left side, she expresses 2.5-6 oz. Pumps 15-20 minutes using a Spectra S1. She utilizes the letdown mode for 2 minutes, then pumps at cycle 50 and strength of vacuum 6-8 for 15-20 minutes. She is using a flange size 24. Right nipple measures 19 mm; left nipple measures 18 mm Engorgement: No Interventions for Engorgement: Cold Pack (for mastitis, not engorgement) Maternal Nipple Condition - Left: Common Nipple Maternal Nipple Condition - Right: Common Nipple Sore Nipples: Yes (especially when pumping, mom describes her nipples turn dark purple/black) Onsite Pre-Nursing Left Nipple: Within Normal Limits Pre-Nursing Right Nipple: Within Normal Limits Assessments/Interventions Assessments/Interventions: Mastitis resolving. Discussion focused on plan of care to prevent recurrence. Start sunflower lecithin, treatment dose for 1 month given back to back recurrence, then preventative dose for 1 month, then re-evaluate with OB/Midwives or myself Measured for flange size: nipple size right 19, so flange size 22-23mm; nipple size left 18 so flange size 21-22mm; ok to go up or down 1 mm for comfort. Lubricate inside flange or nipple with nipple cream prior to pumping to decrease any trauma/microabrasions to her nipple. Pump every 3 hours to decrease stress on nipple/breast while healing. Eventually can start going longer at night, but need to get past mastitis first and get the lecithin going to prevent plugged ducts leading to mastitis. Decrease suction strength of pump, no higher than a 6, perhaps 5 would be better. Pumping should not hurt. Discussed lymphatic breast massage to help decrease breast congestion and increase flow of milk. Reviewed cleaning of pump parts to be sure not a source of infection. Discussed volumes of feeds baby is taking; baby was 7# 12 oz at 2 week check up; if following expected weight gain, expect baby to be around 9# now; given that, expect baby to be taking around 25 oz EBM/day. The last 2 days he tool 36 and 38 oz respectively; perhaps he's in a growth spurt. Also discussed other comfort measures besides eating such as swaddling, soothing, holding, rocking, pacifier. Offer 4-5 oz/feed and then wait 15-20 minutes to see if he really needs more, of if he is a baby that needs to suck. currently using paced bottle feeding and recommend parents continue with that method. If continues to need 36-38oz/day to be content, recommend baby be seen for weight check to be sure appropriate. (baby not here with mom today for weight in office)/ Time spent reviewing chart and face to face with patient: 45 minutes Meds Home Medications and Allergies Home Medications ?Medication ?Instructions ?Recorded ?Confirmed ?Type docosahexaenoic acid 200 mg 200 mg PO DAILY 05/15/23 12/20/23 History capsule ( DHA) acetaminophen 500 mg tablet 1,000 mg PO Q6H PRN 12/20/23 12/20/23 History (Tylenol Extra Strength) ibuprofen 200 mg tablet 400 mg PO Q8H 12/20/23 12/20/23 History Allergies Allergy/AdvReac Type Severity Reaction Status Date / Time latex Allergy Intermediate Rash Verified 12/20/23 11:26
== END 2024-01-07 11:07 | disposition home or self-care (01) ==
LOC: OB LAC 11:07
PROVIDERS: Visit Provider Obstetrics & Gynecology
DX: Z39.1 Encounter for care and examination of lactating mother (principal)
CPT/HCPCS: G0463

== ENCOUNTER 2024-01-24 11:21 | Outpatient (CLI) | payer OTHER, SELFPAY ==
--- NOTE | 2024-01-24 11:30 | CRLHL7_ITS ---
For Patients: As a result of the Cures Act, medical imaging exams and procedure reports are released immediately into your electronic medical record. You may view this report before your referring provider. If you have questions, please contact your health care provider. RIGHT BREAST ULTRASOUND CLINICAL HISTORY: RIGHT breast mastitis unresolved with antibiotics with lump. COMPARISON: None. TECHNIQUE: Real-time ultrasound imaging of RIGHT breast with imaging documentation. FINDINGS: Targeted RIGHT breast ultrasound performed in the area of pain at 8 o`clock 7 cm from the nipple. In this location, there is heterogeneous tissue with duct ectasia. No intraductal nodule. No abscess. Slightly increased vascularity is present in the surrounding tissues. IMPRESSION: Mild focal mastitis with duct ectasia RIGHT breast 8 o`clock 7 cm from the nipple. No evidence of abscess. No suspicious mass. RECOMMENDATIONS: Clinical follow-up and antibiotic therapy. Results and recommendations were discussed with the patient at the time of the exam. BI-RADS Category 2: Benign A lay language report of this examination will be provided to the patient. Dictated by Nemesio Guerrero MD @ 01/24/2024 12:50:57 PM SP/Dictated by: Nemesio Guerrero MD @ 01/24/2024 12:50:00 PM (Electronically Signed)
== END 2024-01-24 11:22 | disposition home or self-care (01) ==
LOC: US 11:23
PROVIDERS: Visit Provider Obstetrics & Gynecology
DX: O91.22 Nonpurulent mastitis associated with the puerperium (principal)
CPT/HCPCS: 76642

== ENCOUNTER 2024-04-22 10:30 | Outpatient (RCR) | payer OTHER, SELFPAY | END 2024-07-04 10:23 | disposition home or self-care (01) | PROVIDERS: Visit Provider Obstetrics & Gynecology | DX: N94.10 Unspecified dyspareunia (principal); R10.2 Pelvic and perineal pain; N94.2 Vaginismus; K59.00 Constipation, unspecified; N39.41 Urge incontinence; Z51.89 Encounter for other specified aftercare | CPT/HCPCS: 97110; 97140; 97161; 97535 ==

== ENCOUNTER 2024-10-09 11:22 | Outpatient (CLI) | payer OTHER, SELFPAY | END 2024-10-09 11:23 | disposition home or self-care (01) | PROVIDERS: Visit Provider Registered Nurse | DX: N91.1 Secondary amenorrhea (principal) | CPT/HCPCS: 82670; 83001; 83498; 84146; 84270; 84402; 84403; 84443 ==

== ENCOUNTER 2025-02-09 16:25 | Outpatient (CLI) | payer OTHER, SELFPAY ==
--- NOTE | 2025-02-09 16:45 | CRLHL7_ITS ---
For Patients: As a result of the Century Cures Act, medical imaging exams and procedure reports are released immediately into your electronic medical record. You may view this report before your referring provider. If you have questions, please contact your health care provider. OB ULTRASOUND FIRST TRIMESTER TRANSVAGINAL INDICATION: Dating and viability. TECHNIQUE: Real time rebollar scale imaging of the fetus was performed. Transvaginal imaging performed. LMP: 12/23/2024. KRYSTEN by LMP: 09/29/2025. GA: 6 w, 6 d. Previous US: No. CRL: 0.9 cm. 6 w 6 d. KRYSTEN: 09/29/2025. FHR: 137 BPM. Gestational sac: 1.5 cm. Appears within normal limits. Yolk sac: 2.5 mm. Appears within normal limits. Right ovary: Within normal limits. 4.4 x 2.7 x 2.8 cm. CL. Left ovary: Within normal limits. 4.2 x 2.2 x 2.5 cm. IMPRESSION: 1. Single living intrauterine measures 6 weeks 6 days with sonographic due date 09/29/2025. 2. Corpus luteal cyst right ovary. Nemesio Guerrero M.D. Diagnostic Radiologist [email or web address] SP/Dictated by: Nemesio Guerrero MD @ 02/09/2025 6:04:00 PM (Electronically Signed)
== END 2025-02-09 16:26 | disposition home or self-care (01) ==
LOC: US 16:26
PROVIDERS: Visit Provider Physician Assistant
DX: O34.81 Maternal care for other abnormalities of pelvic organs, first trimester (principal); N83.11 Corpus luteum cyst of right ovary; Z3A.01 Less than 8 weeks gestation of pregnancy
CPT/HCPCS: 76817; 82565; 82570; 83021; 84156; 84450; 84460; 84520; 86592; 86703; 86704; 86706; 86762; 86787; 86803; 86850; 87086; 87340; 87491; 87591; 87624; 88175

== ENCOUNTER 2025-02-09 17:49 | Outpatient (CLI) | payer OTHER, SELFPAY ==
[2025-02-09 22:30] LABS: Chlamydia DNA Amplified* NOT DETECTED (No Detected); GC DNA Amplified* NOT DETECTED (No Detected)
[2025-02-11 22:44] LABS: HPV Source Cervix
[2025-02-16 13:52] LABS: Pap Test Digital Imaging Done
== END 2025-02-09 17:50 | disposition home or self-care (01) ==
PROVIDERS: Visit Provider Physician Assistant
DX: O34.81 Maternal care for other abnormalities of pelvic organs, first trimester (principal); Z3A.01 Less than 8 weeks gestation of pregnancy; N83.11 Corpus luteum cyst of right ovary
CPT/HCPCS: 76817; 82565; 82570; 83020; 83021; 84156; 84450; 84460; 84520; 85660; 86592; 86703; 86704; 86706; 86762; 86787; 86803; 86850; 87086; 87340; 87491; 87591; 87624; 87625; 88141; 88142; 88175

== ENCOUNTER 2025-02-18 12:00 | Outpatient (CLI) | payer OTHER, SELFPAY | END 2025-02-18 12:01 | disposition home or self-care (01) | LOC: NFLDREF 02-19 19:34 | PROVIDERS: Visit Provider Physician Assistant | DX: O09.291 Supervision of pregnancy with other poor reproductive or obstetric history, first trimester (principal) | CPT/HCPCS: 82570; 84156 ==

== ENCOUNTER 2025-03-09 12:54 | Outpatient (CLI) | payer OTHER, SELFPAY | END 2025-03-09 12:55 | disposition home or self-care (01) | PROVIDERS: Visit Provider Advanced Practice Midwife | DX: Z34.91 Encounter for supervision of normal pregnancy, unspecified, first trimester (principal) | CPT/HCPCS: 84450 ==